=== PATIENT | female | born 1980 | race Caucasian/White ===

== ENCOUNTER 2017-06-10 08:48 | Inpatient (IN) | payer OTHER ==
[2017-06-10 09:54] LABS: BASO % 0.2 % (0-2.0); EOS % 0.2 % (0-4.5); HEMATOCRIT 36.9 % (32.4-45.2); HEMOGLOBIN 12.3 GM/dL (10.7-15.3); LYMPH % 6.2 % (8-40); MCH 30.7 pg (25.7-33.7); MCHC 33.2 g/dl (32.0-36.0); MEAN CELL VOLUME 92.4 fl (80-96); MEAN PLT VOLUME 9.6 fl (7.5-11.1); MONO % 3.9 % (3.8-10.2); NEUT % 89.5 % (42.8-82.8); PLATELET COUNT 183 K/MM3 (134-434); RBC 3.99 M/mm3 (3.60-5.2); RDW 14.2 % (11.6-15.6)
[2017-06-10 09:58] LABS: WHITE BLOOD COUNT 7.6 K/mm3 (4.0-10.0)
[2017-06-10] MEDS ORDERED: DEXTROSE 5%-LACTATED RINGERS 1,000 ML IV SCH (10:00)
[2017-06-10] MEDS ORDERED: METHADONE HCL 10 MG TABLET PO SCH (10:00)
[2017-06-10] MEDS: ELECTROLYTE-148 SOLN 1,000 ML IV SCH (10:00)
[2017-06-10] MEDS ORDERED: FENTANYL/BUPIVACAINE/NS/PF - PCEA - 50 ML DISP.SYRIN EP ONE ×2 (10:05→13:15)
[2017-06-10] MEDS ORDERED: METHADONE HCL 10 MG TABLET ONE (10:05)
[2017-06-10 10:12] LABS: INR 0.88 (0.82-1.09); PROTHROMBIN TIME (PATIENT) 9.9 SEC (9.7-13.0)
[2017-06-10 10:15] LABS: ACTIVATED PTT 27.7 SECONDS (26.9-34.4)
[2017-06-10 10:20] LABS: ANION GAP 7 (8-16); BLOOD UREA NITROGEN 18 mg/dL (7-18); CALCIUM 8.7 mg/dL (8.5-10.1); CHLORIDE 104 mmol/L (98-107); CO2 25 mmol/L (21-32); CREATININE 0.9 mg/dL (0.55-1.02); GLUCOSE,RANDOM 99 mg/dL (74-106); SODIUM 136 mmol/L (136-145)
[2017-06-10] MEDS ORDERED: BUPIVACAINE HCL/PF 0.25% (2.5MG/ML) 10 ML VIAL ONE (10:23)
[2017-06-10] MEDS ORDERED: LIDO 2%/EPI 1:200000 PRESRVFRE (20 ML SDVIAL) ONE (10:23)
[2017-06-10 10:50] LABS: URINE APPEARANCE SLCLOUDY; URINE BILIRUBIN NEGATIVE (<2.0 mg/dL); URINE BLOOD 2+ (NEGATIVE); URINE COLOR YELLOW; URINE GLUCOSE (UA) NEGATIVE (NEGATIVE); URINE KETONE NEGATIVE (NEGATIVE); URINE NITRITE NEGATIVE (NEGATIVE); URINE PROTEIN NEGATIVE (NEGATIVE)
[2017-06-10 10:55] LABS: URINE LEUK ESTERASE 2+ (NEGATIVE)
[2017-06-10 10:56] LABS: EPI CELLS RARE /HPF (FEW); URINE MUCUS RARE
[2017-06-10] MEDS ORDERED: NALOXONE HCL 0.4 MG/ML VIAL IVPUSH PRN (11:04)
[2017-06-10] MEDS ORDERED: AMPICILLIN SODIUM 2 GM VIAL ONE (11:15)
[2017-06-10] MEDS ORDERED: FENTANYL/BUPIVACAINE/NS/PF - PCEA - 50 ML DISP.SYRIN EP SCH (11:15)
[2017-06-10] MEDS ORDERED: AMPICILLIN - 2 GM in SODIUM CHLORIDE 100 ML IVPB ONE (11:15)
[2017-06-10 11:20] LABS: URINE AMPHETAMINES NEGATIVE ng/ml (CUTOFF=500); URINE BARBITURATES NEGATIVE ng/ml (CUTOFF=200); URINE BENZODIAZEPINES NEGATIVE ng/ml (CUTOFF=200)
[2017-06-10 11:21] LABS: PHENCYCLIDINE,URINE NEGATIVE ng/ml (CUTOFF=25)
[2017-06-10 11:41] VITALS: BMI 27.4
[2017-06-10 11:48] LABS: COCAINE, UR POSITIVE ng/ml (CUTOFF=300); METHADONE, UR POSITIVE ng/ml (CUTOFF=300); OPIATES, URI POSITIVE ng/ml (CUTOFF=300)
[2017-06-10] MEDS ORDERED: OXYTOCIN 20 UNITS in 0.9% NS 20 UNIT/1,000 ML INFUS.BAG IV ONE (13:22)
[2017-06-10] MEDS ORDERED: TUBERCULIN PPD 5 TU/0.1ML SYRINGE (IN PATIENT USE ONLY) ID ONE (14:00)
--- NOTE | 2017-06-10 14:23 | HP ---
Past Medical History - Admission Chief Complaint: Labor pain History of Present Illness: 37 yo , LMP 09/15/16, EDC 06/22/17, @ 38 weeks gestation, admitted for labor pain. She has h/o borderline personality disorder, Depression, and substance abuse; she's on Methadone. History Source: Patient Limitations to Obtaining History: No Limitations - Past Medical History ...: 3 ...Para: 0 ...Term: 0 ...: 0 ...Spon : 0 ...Induced : 2 ...Multiple Gestation: 0 ...LMP: 09/15/16 ... Weeks Gestation by Dates: 38.2 ...EDC by Dates: 06/22/17 ...EDC by Sono: 06/22/17 - Past Surgical History Past Surgical History: Yes: None Hx Myomectomy: No Hx Transabdominal Cerclage: No - Smoking History Smoking history: Current every day smoker Have you smoked in the past 12 months: Yes Aproximately how many cigarettes per day: 10 - Alcohol/Substance Use Hx Alcohol Use: No Home Medications - Allergies Allergies/Adverse Reactions: Allergies Allergy/AdvReac Type Severity Reaction Status Date / Time No Known Allergies Allergy Verified 06/10/17 09:23 - Home Medications Home Medications: Ambulatory Orders Methadone (Detox) [Dolophine -] 140 mg PO DAILY 05/14/17 Vit No.130/Iron/Folic [ Vitamins] 1 each PO DAILY 05/14/17 Family Disease History - Family Disease History Family History: Unremarkable Review of Systems - Review of Systems Constitutional: reports: No Symptoms Eyes: reports: No Symptoms HENT: reports: No Symptoms Neck: reports: No Symptoms Cardiovascular: reports: No Symptoms Respiratory: reports: No Symptoms Gastrointestinal: reports: No Symptoms Genitourinary: reports: Pain Neurological: reports: No Symptoms Endocrine: reports: No Symptoms Psychiatric: reports: No Symptoms Pain Intensity: 8 Physical Exam - Maternity Vital Signs: Vital Signs Temperature 97.7 F 06/10/17 13:57 Pulse Rate 54 L 06/10/17 13:15 Respiratory Rate 18 06/10/17 13:15 Blood Pressure 109/79 06/10/17 13:15 O2 Sat by Pulse Oximetry (%) 98 06/10/17 13:15 Constitutional: Yes: Well Nourished Eyes: Yes: Conjunctiva Clear HENT: Yes: Atraumatic Neck: Yes: Supple Cardiovascular: Yes: Regular Rate and Rhythm Lungs: Clear to auscultation - Abdominal Exam/OB Number of Fetuses: Single Presentation: Vertex - Vaginal Exam/OB Station: -1 - Physical Exam ...Motor Strength: WNL Psychiatric: Yes: Alert, Oriented - Labs Lab Results: CBC, BMP 06/10/17 09:30 06/10/17 09:30 Problem List - Problems (1) Pain during labor Code(s): O99.89 - OTH DISEASES AND CONDITIONS COMPL PREG/CHLDBRTH; R52 - PAIN, UNSPECIFIED (2) Status post vaginal delivery Code(s): BSI7411 - Assessment/Plan Active labor Admit to L&D Analgesia as needed Methadone Anticipate
[2017-06-10] MEDS ORDERED: BENZOCAINE 28 GM HEMORRHOIDAL OINTMENT TP PRN (14:26)
[2017-06-10] MEDS ORDERED: ACETAMINOPHEN 325 MG TABLET (FP) PO PRN (14:26)
[2017-06-10] MEDS ORDERED: WITCH HAZEL 50% (TUCKS) 40 PAD/JAR PAD TP PRN (14:26)
[2017-06-10] MEDS ORDERED: BENZOCAINE 20% 57 GM BOTTLE TP PRN (14:26)
[2017-06-10] MEDS ORDERED: METHYLERGONOVINE MALEATE 0.2 MG/1 ML AMP IM PRN (14:26)
[2017-06-10] MEDS ORDERED: BISACODYL 10 MG SUPP.RECT RC PRN (14:26)
[2017-06-10] MEDS ORDERED: IBUPROFEN 600 MG TABLET (FP) PO PRN (14:26)
[2017-06-10] MEDS ORDERED: OXYTOCIN 20 UNITS in 0.9% NS 20 UNIT/1,000 ML INFUS.BAG IV SCH (14:30)
[2017-06-10 14:54] LABS: ARTERIAL BLD GAS O2 SATURATION 22.3 % (90-98.9); ARTERIAL BLOOD GAS BASE EXCESS -5.3 meq/l (-2-2); ARTERIAL BLOOD GAS PCO2 67.5 mmHg (35-45); ARTERIAL BLOOD GAS PO2 17.1 mmHg (80-100); ARTERIAL BLOOD GAS pH 7.19 (7.35-7.45)
[2017-06-10 14:55] LABS: VENOUS PC02 54.3 mmHg (38-52); VENOUS PH 7.24 (7.32-7.42); VENOUS PO2 22.6 mmHg (28-48)
[2017-06-10] MEDS: AMPICILLIN - 1 GM in SODIUM CHLORIDE 100 ML IVPB SCH (16:05)
[2017-06-10] MEDS: FERROUS SO4 325 MG TABLET (FP) PO SCH (17:27)
[2017-06-11 07:36] LABS: BASO % 0.5 % (0-2.0); EOS % 0.7 % (0-4.5); HEMATOCRIT 30.1 % (32.4-45.2); HEMOGLOBIN 10.3 GM/dL (10.7-15.3); LYMPH % 13.3 % (8-40); MCH 31.5 pg (25.7-33.7); MCHC 34.1 g/dl (32.0-36.0); MEAN CELL VOLUME 92.3 fl (80-96); MEAN PLT VOLUME 9.8 fl (7.5-11.1); MONO % 10.1 % (3.8-10.2); NEUT % 75.4 % (42.8-82.8); PLATELET COUNT 168 K/MM3 (134-434); RBC 3.26 M/mm3 (3.60-5.2); RDW 14.3 % (11.6-15.6); WHITE BLOOD COUNT 5.9 K/mm3 (4.0-10.0)
[2017-06-11] MEDS: AMPICILLIN - 1 GM in SODIUM CHLORIDE 100 ML IVPB SCH (08:32)
[2017-06-11] MEDS: FERROUS SO4 325 MG TABLET (FP) PO SCH ×3 (09:00→16:52)
[2017-06-11] MEDS ORDERED: METHADONE HCL 40 MG DISPERSABLE TABLET ONE (09:22)
[2017-06-11] MEDS ORDERED: METHADONE HCL 10 MG TABLET ONE (09:23)
[2017-06-11] MEDS: PRENATAL VITAMINS W/ FOLIC ACID TABLET (FP) PO SCH (09:30)
[2017-06-11] MEDS: METHADONE 120 MG, METHADONE 20 MG PO SCH (09:34)
--- NOTE | 2017-06-11 09:44 | PN ---
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 Nose / Oropharynx suctioned @ perineum. Cord clamped and cut. Placenta expelled spontaneously intact.
--- NOTE | 2017-06-11 13:48 | CON.PSY ---
Psychiatry Consult Chief Complaint: 37 year old female s/p first delivery. History of Substance abuse and ? Bipolar disorder. She had been on Seroquel, Neuronyin, visatril and Zoloft. Sees at the [facility]. Symptoms: reports: Anxiety - Previous Psychiatric Treatment Inpatient: One prior admission - Previous Substance Abuse Treatment Outpatient: Less than 6 mos ago - Reason for Previous Treatment Reason for Previous Treatment: Major Depression, Drug Abuse, Heroin or Other Narcotics - Current Medications Current Medications: Active Medications Acetaminophen (Tylenol -) 650 mg PO Q3H PRN PRN Reason: PAIN Benzocaine (Americaine 20% [place] -) 1 spray TP PRN PRN PRN Reason: PAIN Benzocaine (Americaine Ointment -) 1 applic TP PRN PRN PRN Reason: PAIN Bisacodyl (Dulcolax Suppository -) 10 mg RC PRN PRN PRN Reason: CONSTIPATION Diphtheria/Tetanus/Acell Pertussis (Boostrix -) 0.5 ml IM .ONCE ONE Stop: 06/12/17 10:01 Fentanyl/Bupivacaine/Sodium Chlor (Bupivicaine 0.125%/Fentanyl 2mcg/Ml Pcea) 50 ml EP ASDIR ROSAURA PRN Reason: Protocol Last Admin: 06/10/17 10:45 Dose: 50 ml Ferrous Sulfate (Feosol -) 325 mg PO TIDCM [facility] Last Admin: 06/11/17 09:00 Dose: 325 mg Parenteral Electrolytes (Plasma-Lyte 148 -) 1,000 mls @ 125 mls/hr IV ASDIR [facility] Last Admin: 06/10/17 10:00 Dose: 125 mls/hr Oxytocin/Sodium Chloride (Normal Saline+20 Units Oxytocin -) 20 unit in 1,000 mls @ 125 mls/hr IV ASDIR [facility] Last Admin: 06/10/17 14:15 Dose: 125 mls/hr Ibuprofen (Motrin -) 600 mg PO Q4H PRN PRN Reason: PAIN Methadone HCl 120 mg/ (Methadone HCl 20 mg) 140 mg PO DAILY@0600 [facility] Last Admin: 06/11/17 09:34 Dose: 140 mg Methylergonovine Maleate (Methergine Injection -) 0.2 mg IM Q4H PRN PRN Reason: EXCESSIVE BLEEDING (L&D) Naloxone HCl (Narcan -) 0.4 mg IVPUSH PRN PRN PRN Reason: Sedation Pneumococcal 13-Valent Conj Vacc (Prevnar 13 Syringe -) 0.5 ml IM .ONCE ONE Stop: 06/12/17 10:01 Multivit/Folic Acid/Iron ( Vitamins (Sjr) -) 1 tab PO DAILY ROSAURA Last Admin: 06/11/17 09:30 Dose: 1 tab Senna/Docusate Sodium (Pericolace -) 2 tablet PO HS PRN PRN Reason: CONSTIPATION Witch Ritu/Glycerin (Tucks Pads -) 1 pad TP PRN PRN PRN Reason: PAIN - Allergies Allergies: Allergies Allergy/AdvReac Type Severity Reaction Status Date / Time No Known Allergies Allergy Verified 06/10/17 15:50 - Current Living Status Usual Living Arrangement: With Significant Other - Current Mental Status Evaluation Appearance: Disheveled Attitude: Guarded - Affect Affect: Constrictive Appropriateness: Appropriate to Content - Mood Mood: Anxious - Speech/Language Expressive: Coherent - Psychomotor Activity Psychomotor Activity: Hyperactive - Thought Process Thought Process: Intact - Thought Content Hallucinations: Absent Delusions: Absent - Self Perception Self Perception: No Impairment - Cognition Attention: Alert Orientation: Time Memory, Immediate Recall: Intact Memory, Short Term: 3/3 Memory, Remote with Promptin/3 - Concentration Serial Sevens Intact: No Simple Calculations Intact: No - Abstraction Proverb Interpretation: Intact Judgement: Intact - Insight Insight: Intact - Impulse Control Impulse Control: Minimally Impaired - Suicidal Ideation Suicidal Ideation: No - Homicidal Ideation Homicidal Ideation: No Assessment/Plan 1) Start Seroquel; 100 mg po bid. 2) Psych follow up at [facility] [place] [facility] with DR. Bhardwaj. 3) Discharge when medically stable.
[2017-06-11] MEDS: QUEtiapine FUMARATE 100 MG TABLET (FP) PO SCH (21:16)
[2017-06-11] MEDS ORDERED: SENNOSIDES/DOCUSATE COMBO (SENNA PLUS) TABLET (UD) PO PRN (22:00)
--- NOTE | 2017-06-11 23:53 | PN ---
Post Progress Note - Subjective Subjective: 37 yo Para 1 status post normal vaginal delivery, seen and evaluated. Doing well. Post Day: 1 Type of Delivery: Vital Signs: Vital Signs Temperature 98.2 F 06/11/17 22:00 Pulse Rate 58 L 06/11/17 22:00 Respiratory Rate 18 06/11/17 22:00 Blood Pressure 120/60 06/11/17 22:00 O2 Sat by Pulse Oximetry (%) 100 06/10/17 14:00 Breast Exam: Yes: Soft Uterus: Yes: Fundus Firm Abdomen/GI: Yes: Abdomen soft Lochia: Yes: Rubra Lochia, amount: Moderate Extremities: Yes: Calves non-tender Activity: Ambulating - Labs Labs: CBC WBC 5.9 K/mm3 (4.0-10.0) 06/11/17 06:46 RBC 3.26 M/mm3 (3.60-5.2) L 06/11/17 06:46 Hgb 10.3 GM/dL (10.7-15.3) L D 06/11/17 06:46 Hct 30.1 % (32.4-45.2) L D 06/11/17 06:46 MCV 92.3 fl (80-96) 06/11/17 06:46 MCH 31.5 pg (25.7-33.7) 06/11/17 06:46 MCHC 34.1 g/dl (32.0-36.0) 06/11/17 06:46 RDW 14.3 % (11.6-15.6) 06/11/17 06:46 Plt Count 168 K/MM3 (134-434) 06/11/17 06:46 MPV 9.8 fl (7.5-11.1) 06/11/17 06:46 Neutrophils % 75.4 % (42.8-82.8) 06/11/17 06:46 Lymphocytes % 13.3 % (8-40) D 06/11/17 06:46 Monocytes % 10.1 % (3.8-10.2) D 06/11/17 06:46 Eosinophils % 0.7 % (0-4.5) D 06/11/17 06:46 Basophils % 0.5 % (0-2.0) 06/11/17 06:46 Problem List - Problems (1) Pain during labor Code(s): O99.89 - OTH DISEASES AND CONDITIONS COMPL PREG/CHLDBRTH; R52 - PAIN, UNSPECIFIED (2) Status post vaginal delivery Code(s): ELA1964 - Assessment/Plan Status post spontaneous vaginal delivery. Stable Continue routine care
[2017-06-12] MEDS ORDERED: METHADONE HCL 40 MG DISPERSABLE TABLET ONE (06:02)
[2017-06-12] MEDS ORDERED: METHADONE HCL 10 MG TABLET ONE (06:03)
[2017-06-12] MEDS: METHADONE 120 MG, METHADONE 20 MG PO SCH (06:07)
[2017-06-12] MEDS: FERROUS SO4 325 MG TABLET (FP) PO SCH ×2 (08:00→11:47)
[2017-06-12] MEDS: PRENATAL VITAMINS W/ FOLIC ACID TABLET (FP) PO SCH (09:47)
[2017-06-12] MEDS: QUEtiapine FUMARATE 100 MG TABLET (FP) PO SCH (09:49)
[2017-06-12] MEDS ORDERED: PNEUMOC 13-VAL CONJ-DIP CRM/PF 0.5 ML DISP.SYRIN IM ONE (10:00)
[2017-06-12] MEDS ORDERED: DIPHTH,PERTUSS(ACELL),TET 0.5 ML DISP.SYRIN IM ONE (10:00)
[2017-06-12] MEDS ORDERED: PNEUMOCOCCAL 23 VACCINE 0.5 ML VIAL IM ONE (10:00)
[2017-06-12 11:54] VITALS: BP 120/78; PULSE 68; TEMP 98.1
[2017-06-12] MEDS: ELECTROLYTE-148 SOLN 1,000 ML IV SCH (15:07)
--- NOTE | 2017-06-12 16:03 | DS ---
Physical Exam-[employer] Vital Signs: Vital Signs Temperature 98.1 F 06/12/17 10:00 Pulse Rate 68 06/12/17 10:00 Respiratory Rate 18 06/12/17 10:00 Blood Pressure 120/78 06/12/17 10:00 O2 Sat by Pulse Oximetry (%) 100 06/10/17 14:00 Constitutional: Yes: Poor Hygeine HENT: Yes: Atraumatic Neck: Yes: Supple, Trachea Midline Cardiovascular: Yes: Regular Rate and Rhythm Respiratory: Yes: Regular, CTA Bilaterally Gastrointestinal: Yes: Normal Bowel Sounds External Genitalia: Yes: Normal Vaginal Exam: Yes: Normal Cervix: Yes: Normal Uterus: Yes: Firm ....Post : Yes: Uterus firm, Slight lochia rubra Breast(s): Yes: WNL Neurological: Yes: Alert, Oriented ...Motor Strength: WNL Psychiatric: Yes: Alert, Oriented Labs: CBC, BMP 06/11/17 06:46 06/10/17 09:30 Delivery - Delivery Vaginal Delivery: Spontaneous Type of Anesthesia: Epidural Episiotomy/Laceration: None EBL (cc): 300 Delivery, Single - Stages of Labor Date 1st Stage Initiatied: 06/10/17 Time 1st Stage Initiated: 06:45 Date 2nd Stage Initiated: 06/10/17 Time 2nd Stage Initiated: 13:30 Date of Delivery: 06/10/17 Time of Delivery: 14:11 Time Placenta Delivered: 14:15 - 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 She received methadone in house. She was found to have MRSA; after consulting infectious disease specialist, she was discharged home with Bactroben and antibacterial soap. Condition: Good - Instructions Diet, Activity, Other Instructions: regular diet, follow up [facility] care 4 weeks, if fever, heavy vaginal bleeding call MD. follow up [facility] 4 weeks Disposition: HOME - Home Medications Comprehensive Discharge Medication List: Ambulatory Orders Methadone (Detox) [Dolophine -] 140 mg PO DAILY 05/14/17 Vit No.130/Iron/Folic [ Vitamins] 1 each PO DAILY 05/14/17 Quetiapine Fumarate [Seroquel -] mg PO HS 06/10/17 Sertraline HCl [Zoloft] mg PO 06/10/17 hydrOXYzine PAMOATE [Vistaril -] mg PO TID 06/10/17
== END 2017-06-12 17:00 | disposition home or self-care (01) | DRG 560 ==
LOC: JLDR 08:48 → J3W 16:15
PROVIDERS: ADMIT Obstetrics & Gynecology; ATTEND Obstetrics & Gynecology
PROC: 10E0XZZ Delivery of Products of Conception, External Approach (ICD-10-PCS; principal; 2017-06-11)
DX: O99.323 Drug use complicating pregnancy, third trimester (principal); F11.20 Opioid dependence, uncomplicated; O99.343 Other mental disorders complicating pregnancy, third trimester; F32.3 Major depressive disorder, single episode, severe with psychotic features; O26.893 Other specified pregnancy related conditions, third trimester; F60.3 Borderline personality disorder; O99.334 Smoking (tobacco) complicating childbirth; F17.210 Nicotine dependence, cigarettes, uncomplicated; Z3A.38 38 weeks gestation of pregnancy; Z37.0 Single live birth
CPT/HCPCS: 36415; 36600; 59409; 80048; 80307; 81003; 81015; 82803; 85025; 85461; 85610; 85730; 86593; 86850; 86900; 86901; 86999; 87081; 90715; 90732; G0009

== ENCOUNTER 2018-04-16 19:57 | Inpatient (IN) | payer OTHER ==
--- NOTE | 2018-04-16 20:21 | PDOC ---
Rapid Medical Evaluation Time Seen by Provider: 04/16/18 20:16 Medical Evaluation: Allergies Allergy/AdvReac Type Severity Reaction Status Date / Time No Known Allergies Allergy Verified 06/10/17 15:50 04/16/18 20:16 I have performed a brief in-person evaluation of this patient. The patient presents with a chief complaint of: Being treated for endocarditis, AMA at [facility] with R hip pain. Pertinent physical exam findings: No gross deficits, weight bears, I have ordered the following: CBC, CMP, U preg Tylenol The patient will proceed to the ED for further evaluation. 04/16/18 20:20 04/16/18 20:21 Discharge Disposition - Diagnosis Right hip pain - Referrals Referrals: Ana Manrique NP [Primary Care Provider] - - Patient Instructions - Post Discharge Activity
[2018-04-16] MEDS ORDERED: ACETAMINOPHEN 500 MG TABLET (FP) PO ONE (20:22)
[2018-04-16] MEDS ORDERED: ACETAMINOPHEN 500 MG TABLET (FP) ONE (20:48)
--- NOTE | 2018-04-16 21:11 | PDOC ---
Attending Attestation - HPI HPI: 04/16/18 22:30 The patient is a 37 year old female, with a significant past medical history of opioid dependence, Diaz disease, HTN, HCV, asthma, recent diagnosis of endocarditis, who presents to the emergency department with, 2 weeks of pleuritic chest pain with associated fevers, chills, and shortness of breath. Patient was recently treated at [facility] for endocarditis at which time she signed out AMA (this morning, unknown antibiotic). She denies recent fevers, chills, headache or dizziness. She denies recent nausea, vomit, diarrhea or constipation. She denies recent dysuria, frequency, urgency or hematuria. Allergies: NKDA <Russell Mi - Last Filed: 04/16/18 22:30> - Resident Resident Name: Deon Carbone - ED Attending Attestation I have performed the following: I have examined & evaluated the patient, The case was reviewed & discussed with the resident, I agree w/resident's findings & plan, Exceptions are as noted - Physicial Exam PE: 04/16/18 23:12 GENERAL: The patient is in no acute distress. HEAD: Normal EYES: PERRLA, EOMI, sclera anicteric, conjunctiva clear. ENT: Ears normal, nares patent, oropharynx clear without exudates. Moist mucous membranes. NECK: Normal range of motion, supple LUNGS: Breath sounds equal, clear to auscultation bilaterally. No wheezes, and no crackles. HEART:Regular rate and rhythm, normal S1 and S2 without murmur, rub or gallop. ABDOMEN: Soft, nontender, normoactive bowel sounds. EXTREMITIES: Normal range of motion, no edema. No clubbing or cyanosis. No erythema, or tenderness. NEUROLOGICAL: Cranial nerves II through XII grossly intact. Normal speech. No focal neurological deficits. SKIN: Warm, Dry, normal turgor, no rashes or lesions noted. - Medical Decision Making Pt has a known history of endocarditis Presenting with fevers pt eloped from OSH 04/16/18 23:12 Laboratory Tests 04/16/18 04/16/18 04/16/18 20:55 20:55 20:55 WBC 8.6 Hgb 9.7 L Hct 28.6 L D Plt Count 306 Sodium 133 L Potassium 4.8 Chloride 99 Carbon Dioxide 28 Anion Gap 6 L BUN 21 H Creatinine 1.2 Random Glucose 83 Urine HCG, Qual Negative Micro requested from OSH Will give abx based on this Admit to hospitalist service Last dose of abx this morning Clinical impression: endocarditis, initial presentation <Valentine Cortes - Last Filed: 04/21/18 10:14> Attestations - Attestations 04/16/18 22:30 Documentation prepared by Russell Mi, acting as medical device sales consultant for Valentine Cortes MD. <Russell Mi - Last Filed: 04/16/18 22:30>
--- NOTE | 2018-04-16 21:16 | PDOC ---
History of Present Illness - General Chief Complaint: Chest Pain Stated Complaint: INFECTION Time Seen by Provider: 04/16/18 20:16 - History of Present Illness Initial Comments: 04/16/18 21:10 37 yo F with h/o opioid dependence, Diaz disease, HTN, HCV, asthma, recent diagnosis of endocarditis on antibiotics who p/w chest pain. Patient reports 2 weeks of pleuritic, inhalational, non-exertional chest pain, fevers, and chills , and SOB. +2 weeks of slightly productive cough. Recently treated at [place]. Reports last IV Heroin 6-7 days ago. Patient states that she was recently admitted to [facility] for endocarditis, but left AMA this morning due to dissatisfaction with care she was receiving from staff. Patient does not recall antibiotic regimen that she was on. Patient denies WOODS, vision change, palpitations, wheezing, orthopena, PND, leg swelling/pain, N/V, F,C, urinary complaints, hematuria, BPR, abdominal pain, diarrhea, constipation, lightheadedness, weakness, sensory changes. PMHx: as noted above, no h/o cardiac valve replacement, structural heart disease. ROS: as noted SHx: tobacco use daily 1-2 ppd for 20 + years. Denies IVDA, Etoh. Allergies: NKDA Past History - Past Medical History Allergies/Adverse Reactions: Allergies Allergy/AdvReac Type Severity Reaction Status Date / Time No Known Allergies Allergy Verified 04/16/18 20:23 Home Medications: Ambulatory Orders Diphenhydramine [Benadryl] 25 mg IV QID 04/16/18 Ibuprofen [Motrin -] 600 mg PO QID 04/16/18 Methadone (Detox) [Dolophine -] 20 mg PO DAILY 04/16/18 Anemia: Yes Asthma: Yes (LAST ATTACK 1 YEAR AGO) Cancer: No Cardiac Disorders: No CVA: No COPD: No CHF: No Dementia: No Diabetes: No GI Disorders: No Disorders: No HTN: No Hypercholesterolemia: No Liver Disease: Yes (Hep C, tx'd w/ epclusa x 12 wks; svr) Seizures: No Thyroid Disease: No - Surgical History Abdominal Surgery: No Appendectomy: No Cardiac Surgery: No Cholecystectomy: No Lung Surgery: No Neurologic Surgery: Yes (TRANS-SPHENOIDAL HYPOPHYSECTOMY AGE 15) Orthopedic Surgery: No - Suicide/Smoking/Psychosocial Hx Smoking Status: Yes Smoking History: Current every day smoker Years of Tobacco Use: 14 Have you smoked in the past 12 months: Yes Number of Cigarettes Smoked Daily: 5 Information on smoking cessation initiated: No Hx Alcohol Use: No Drug/Substance Use Hx: Yes Hx Substance Use Treatment: Yes (METHADONE) Review of Systems - Review of Systems Comments:: 04/16/18 21:16 GENERAL/CONSTITUTIONAL: + fever and chills. No weakness. HEAD, EYES, EARS, NOSE AND THROAT: No change in vision. No ear pain or discharge. No sore throat. CARDIOVASCULAR: + chest pain and shortness of breath. RESPIRATORY: No cough, wheezing, or hemoptysis. GASTROINTESTINAL: No nausea, vomiting, diarrhea or constipation. GENITOURINARY: No dysuria, frequency, or change in urination. MUSCULOSKELETAL: + R hip pain. No joint or muscle swelling or pain. No neck or back pain. SKIN: No rash NEUROLOGIC: No headache, vertigo, loss of consciousness, or change in strength/ sensation. ENDOCRINE: No increased thirst. No abnormal weight change HEMATOLOGIC/LYMPHATIC: No anemia, easy bleeding, or history of blood clots. ALLERGIC/IMMUNOLOGIC: No hives or skin allergy. *Physical Exam - Vital Signs Last Vital Signs Temp Pulse Resp BP Pulse Ox 102.2 F H 128 H 22 H 106/64 100 04/16/18 20:20 04/16/18 20:20 04/16/18 20:20 04/16/18 20:20 04/16/18 20:20 - Physical Exam Comments: 04/16/18 21:16 GENERAL: Awake, alert, and fully oriented, in no acute distress HEAD: No signs of trauma, normocephalic, atraumatic EYES: PERRLA, EOMI, sclera anicteric, conjunctiva clear ENT: Auricles normal inspection, hearing grossly normal, nares patent, oropharynx clear without exudates. Moist mucosa NECK: Normal ROM, supple, no lymphadenopathy, JVD, or masses LUNGS: No distress, speaks full sentences, clear to auscultation bilaterally HEART: + systolic murmur RU and AGUSTIN sternal border. Regular rate and rhythm, normal S1 and S2, rubs or gallops, peripheral pulses normal and equal bilaterally. ABDOMEN: Soft, nontender, normoactive bowel sounds. No guarding, no rebound. No masses EXTREMITIES :Multiple track teague BL UE. Normal range of motion, no edema. No clubbing or cyanosis. NEUROLOGICAL: Cranial nerves II through XII grossly intact. Normal speech, normal gait, no focal sensorimotor deficits SKIN: Warm, Dry, normal turgor, no rashes or lesions noted Moderate Sedation - Procedure Monitoring Vital Signs: Procedure Monitoring Vital Signs Temperature 102.2 F H 04/16/18 20:20 Pulse Rate 128 H 04/16/18 20:20 Respiratory Rate 22 H 04/16/18 20:20 Blood Pressure 106/64 04/16/18 20:20 O2 Sat by Pulse Oximetry (%) 100 04/16/18 20:20 ED Treatment Course - LABORATORY CBC & Chemistry Diagram: 04/16/18 20:55 04/16/18 20:55 - Medications Given in the ED: ED Medications Discontinued Medications Generic Name Dose Route Start Last Admin Trade Name Freq PRN Reason Stop Dose Admin Acetaminophen 1,000 mg 04/16/18 20:22 04/16/18 20:49 Tylenol - PO 04/16/18 20:23 1,000 mg ONCE ONE Administration Medical Decision Making - Medical Decision Making 04/16/18 21:13 37 yo F with h/o opioid dependence, [place] disease, HTN, IVDA, HCV, asthma, recent diagnosis of endocarditis on antibiotics who p/w chest pain, SOB. Temp 102.2, HR 128, RR 22, O2 100, B P106/64. Patient with 3/4 SIRS criteria, and suspected infection. Possible endocarditis. No evidence of vascular ( [place] lesions, conjuctival hemorrhages) or immunologic ( Bradley spots, Osler nodes) phenomenon. 2/5 Minor criteria per REEDER criteria ( fever, h/o recent IVDA). Sepsis protocol initiated. No evidence of resp failure, pulmonary edema, or cardiogenic shock, CHF. Will obtain blood cultures, provide antipyretic control, and analgesia. Ed Course: Sepsis Set, Blood Cx. x 3, 3 blood cultures have been sent to lab R AC, LAC, R HAND ESR Tylenol, NS 30 cc/kg 04/16/18 22:01 Contacted [facility] , Patient on 6 floor. Per nurse on 6th floor patient signed out AMA, and unable to provide information. Awaiting call back from senior resident. Patient signed release of medical information to obtain [facility] records. 04/16/18 22:33 WBC: 8.6 CMP: Unremarkable Urine preg: Neg contacted medical records . Awaiting call back. 04/17/18 00:03 Will admit to tele, for antibiotics and echo 04/17/18 00:[address] Ponce. Admitted to tele ID consult placed *DC/Admit/Observation/Transfer Diagnosis at time of Disposition: Endocarditis Qualifiers: Endocarditis type: unspecified Chronicity: unspecified Qualified Code(s): I38 - Endocarditis, valve unspecified Sepsis Qualifiers: Sepsis type: sepsis due to unspecified organism Qualified Code(s): A41.9 - Sepsis, unspecified organism - Discharge Dispostion Condition at time of disposition: Stable Decision to Admit order: Yes - Referrals Referrals: Ana Manrique ORGAN BUILDER [Primary Care Provider] - - Patient Instructions - Post Discharge Activity
[2018-04-16 21:38] LABS: BASO % 0.2 % (0-2.0); EOS % 0.4 % (0-4.5); HEMATOCRIT 28.6 % (32.4-45.2); HEMOGLOBIN 9.7 GM/dL (10.7-15.3); LYMPH % 7.8 % (8-40); MCHC 33.9 g/dl (32.0-36.0); MEAN CELL VOLUME 85.6 fl (80-96); MEAN PLT VOLUME 8.2 fl (7.5-11.1); MONO % 6.4 % (3.8-10.2); NEUT % 85.2 % (42.8-82.8); PLATELET COUNT 306 K/MM3 (134-434); RBC 3.35 M/mm3 (3.60-5.2); RDW 15.3 % (11.6-15.6); WHITE BLOOD COUNT 8.6 K/mm3 (4.0-10.0)
[2018-04-16 21:49] LABS: ALBUMIN 2.4 g/dl (3.4-5.0); ALK PHOS 111 U/L (45-117); ANION GAP 6 MMOL/L (8-16); BILIRUBIN,TOTAL 0.2 mg/dL (0.2-1); BLOOD UREA NITROGEN 21 mg/dL (7-18); CALCIUM 8.4 mg/dL (8.5-10.1); CHLORIDE 99 mmol/L (98-107); CO2 28 mmol/L (21-32); CREATININE 1.2 mg/dL (0.55-1.3); GLUCOSE,RANDOM 83 mg/dL (74-106); POTASSIUM 4.8 mmol/L (3.5-5.1); SGOT/AST 15 U/L (15-37); SGPT/ALT 19 U/L (13-61); SODIUM 133 mmol/L (136-145); TOT PROT 7.1 g/dl (6.4-8.2)
[2018-04-16] MEDS ORDERED: SODIUM CHLORIDE 1,633 ML IV ONE (22:03)
--- NOTE | 2018-04-16 23:58 | HP ---
CHIEF COMPLAINT: PCP: HISTORY OF PRESENT ILLNESS: 37 yo F with h/o opioid dependence, [place] disease, HTN, HCV, asthma, recent diagnosis of endocarditis on antibiotics who p/w chest pain. Patient reports 2 weeks of pleuritic, inhalational, non-exertional chest pain, fevers, and chills , and SOB. +2 weeks of slightly productive cough. Recently treated at [place]. Reports last IV Heroin 6-7 days ago. Patient states that she was recently admitted to [facility] for endocarditis, but left AMA this morning due to dissatisfaction with care she was receiving from staff. Patient does not recall antibiotic regimen that she was on. Patient denies WOODS, vision change, palpitations, wheezing, orthopena, PND, leg swelling/pain, N/V, F,C, urinary complaints, hematuria, BPR, abdominal pain, diarrhea, constipation, lightheadedness, weakness, sensory changes. pt was on methadone program and left the program for non compliance pt is currently using heroin and methadone illegal , last heroin injection 6 days ago pt had baby one year ago, pt LMP 2 weeks ago pt reports chronic right hip pain that worsen last 2 weeks. ER course was notable for: (1)bhch negative (2)blood cx ,then vanco and zosym , consult ID (3)cxr , echo Recent Travel:denies PAST MEDICAL HISTORY: as per HPI PAST SURGICAL HISTORY: Brain surgery Social History: Smokin-5 cig/day Alcohol:denies Drugs: Methadone , heroin , pots Family History:Mother HTN , Father heart disease Allergies No Known Allergies Allergy (Verified 04/16/18 20:23) HOME MEDICATIONS: Home Medications Medication Instructions Recorded Diphenhydramine [Benadryl] 25 mg IV QID 04/16/18 Ibuprofen [Motrin -] 600 mg PO QID 04/16/18 Methadone (Detox) [Dolophine -] 20 mg PO DAILY 04/16/18 REVIEW OF SYSTEMS CONSTITUTIONAL: Absent: fever, chills, diaphoresis, generalized weakness, malaise, loss of appetite, weight change HEENT: Absent: rhinorrhea, nasal congestion, throat pain, throat swelling, difficulty swallowing, mouth swelling, ear pain, eye pain, visual changes CARDIOVASCULAR: Absent: chest pain, syncope, palpitations, irregular heart rate, lightheadedness , peripheral edema RESPIRATORY: Absent: cough, shortness of breath, dyspnea with exertion, orthopnea, wheezing, stridor, hemoptysis GASTROINTESTINAL: Absent: abdominal pain, abdominal distension, nausea, vomiting, diarrhea, constipation, melena, hematochezia GENITOURINARY: Absent: dysuria, frequency, urgency, hesitancy, hematuria, flank pain, genital pain MUSCULOSKELETAL: Absent: myalgia, arthralgia, joint pain right hip, back pain, neck pain SKIN: Absent: rash, itching, pallor HEMATOLOGIC/IMMUNOLOGIC: Absent: easy bleeding, easy bruising, lymphadenopathy, frequent infections ENDOCRINE: Absent: unexplained weight gain, unexplained weight loss, heat intolerance, cold intolerance NEUROLOGIC: Absent: headache, focal weakness or paresthesias, dizziness, unsteady gait, seizure, mental status changes, bladder or bowel incontinence PSYCHIATRIC: Absent: anxiety, depression, suicidal or homicidal ideation, hallucinations. PHYSICAL EXAMINATION Vital Signs - 24 hr 04/16/18 20:20 Temperature 102.2 F H Pulse Rate 128 H Respiratory 22 H Rate Blood Pressure 106/64 O2 Sat by Pulse 100 Oximetry (%) GENERAL: lethargic , drowsy , AAOX3 , poor hygiene , HEAD:NC/AT EYES: Pupils equal, round and reactive to light, extraocular movements intact, sclera anicteric, conjunctiva clear. No lid lag. ENT: Dry MM NECK: supple without JVD, right neck erythema (she said small cut possible injection site ) LUNGS: Breath sounds equal, clear to auscultation bilaterally. No wheezes, and no crackles. No accessory muscle use. HEART: Regular rate and rhythm, normal S1 and S2, 2/6 holosystolic murmur LUSB, RUSB , ABDOMEN: Soft, nontender, not distended, normoactive bowel sounds,diffuse skin stria all over her body , no CVA tenderness UPPER EXTREMITIES: 2+ pulses, warm, well-perfused. No cyanosis. No clubbing. No peripheral edema. LOWER EXTREMITIES: 2+ pulses, warm, well-perfused. No calf tenderness. No peripheral edema. right hip tenderness NEUROLOGICAL: Cranial nerves II-XII intact.slurred speech , drowsy PSYCHIATRIC: lethargic , drowsy SKIN: Warm, dry, poor hygiene, diffuse skin stria Laboratory Results - last 24 hr 04/16/18 04/16/18 04/16/18 20:55 20:55 20:55 WBC 8.6 RBC 3.35 L Hgb 9.7 L Hct 28.6 L D MCV 85.6 MCH 29.0 MCHC 33.9 RDW 15.3 Plt Count 306 MPV 8.2 Absolute Neuts (auto) 7.3 Neutrophils % 85.2 H D Lymphocytes % 7.8 L D Monocytes % 6.4 Eosinophils % 0.4 D Basophils % 0.2 Nucleated RBC % 0 Sodium 133 L Potassium 4.8 Chloride 99 Carbon Dioxide 28 Anion Gap 6 L BUN 21 H Creatinine 1.2 Creat Clearance w eGFR 50.28 Random Glucose 83 Calcium 8.4 L Total Bilirubin 0.2 AST 15 ALT 19 Alkaline Phosphatase 111 Total Protein 7.1 Albumin 2.4 L Urine HCG, Qual Negative CBC, BMP 04/16/18 20:55 04/16/18 20:55 ASSESSMENT/PLAN: 37 year old female with pmhx of substance abuse (heroin ) and h/o endocarditis presented to ED today due to chest pain and right hip pain was found to be septic and admitted to tele for further evaluation. # Sepsis likely due to endocarditis vs another source of infection * IV fluids NS Bolus and maintenance * Lobo cx * Abx vanc /zosyn * consult ID * Echo in am * admit to tele * cardiac and blood pressure close monitor as pt can deteriorate to septic shock * tylenol for fever * cxr * ekg * ESR, CRP * records from [facility] in AM , called multiple times by ED resident # chest pain unlikely ACS but more from endocarditis * tele monitor * EKG * Trend trop #Hip pain acute on chronic worsen last couple weeks * R/O osteomylitis * HIP x ray , will do MRI if notice any abnormalities on X ray * tyhlenol for pain # Substance abuse * pt was on methadone 4 months ago and was taken off due non compliance * she is using heroin injection since then and last use 5 days ago * denies alcohol * UA and urine tox * consult detox * monitor for withdrawal # Anemia likely due to chronic disease * no active bleeding * iron studies , B12 , folic acid , tsh #H/O jaqui # FEN * NS Bolus and maintenance * monitor lytes * regular diet # Proph * lovenox 40 daily sq # Dispo * tele inpatient Visit type - Emergency Visit Emergency Visit: Yes ED Registration Date: 04/16/18 Care time: The patient presented to the Emergency Department on the above date and was hospitalized for further evaluation of their emergent condition. - New Patient This patient is new to me today: Yes Date on this admission: 04/16/18 - Critical Care Critical Care patient: No
--- NOTE | 2018-04-17 00:26 | PN ---
Teaching Attending Note Name of Resident: Cuco Ponce ATTENDING PHYSICIAN STATEMENT I saw and evaluated the patient. I reviewed the resident's note and discussed the case with the resident. I agree with the resident's findings and plan as documented. 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 Patient reports 2 weeks of pleuritic, inhalational, non-exertional chest pain, fevers, and chills, and SOB. Associated with slightly productive cough. Recently treated at [place]. Says right groin pain is chronic due to her DJD, but has gotten worse recently. Reports last IV Heroin 6-7 days ago. Was discharged from methadone 4 months ago, but since then has been getting methadone on the street. LMP was 1 week ago. Patient states that she was recently admitted to [facility] for endocarditis, but left AMA this morning due to dissatisfaction with the care she was receiving from staff. Patient does not recall antibiotic regimen that she was on. She denies headache, vision change, palpitations, wheezing, orthopena, PND, leg swelling/pain, nausea, vomiting, chills, fever, urinary complaints, hematuria, abdominal pain, diarrhea, constipation, lightheadedness or weakness. OBJECTIVE: Alert Vital Signs Period Temp Pulse Resp BP Sys/Han Pulse Ox Last 24 Hr 102.2 F 128 22 106/64 100 HEENT: No Jaundice, eye redness or discharge, PERRLA, EOMI. Normocephalic, atraumatic. External ears are normal and hearing is grossly intact. No nasal discharge. Neck: Supple, nontender. No palpable adenopathy or thyromegaly. No JVD Chest: Good effort. Clear to auscultation and percussion. Heart: Regular. No S3 or rub. 2/6 FIDENCIO. Abdomen: Not distended, soft, nontender and no HSM. No rebound or guarding. Normoactive bowel sounds. Ext: Peripheral pulses intact. No leg edema. Tender right groin and walking with a limp. Skin: Warm and dry. No petechiae, rash or ecchymosis. Neuro: Alert. Oriented x3. CN 2-12 grossly intact. Sensation grossly intact in all four extremities and DTR are symmetric. Home Medications Medication Instructions Recorded Diphenhydramine [Benadryl] 25 mg IV QID 04/16/18 Ibuprofen [Motrin -] 600 mg PO QID 04/16/18 Methadone (Detox) [Dolophine -] 20 mg PO DAILY 04/16/18 Abnormal Lab Results 04/16/18 04/16/18 20:55 20:55 RBC 3.35 L Hgb 9.7 L Hct 28.6 L D Neutrophils % 85.2 H D Lymphocytes % 7.8 L D Sodium 133 L Anion Gap 6 L BUN 21 H Calcium 8.4 L Albumin 2.4 L ASSESSMENT AND PLAN: 1. Chest pain - Etiology unclear, though may be related to endocarditis. CXR, urinalysis and EKG pending. Will admit to telemetry to rule out ACS and get ECHO. Repeat sepsis workup and strive to get records from [facility]. Get right hip MRI to rule out septic arthritis/osteomyelitis. Will continue IV vancomycin and zosyn, consult ID. 2. Hypoalbuminemia - Possibly due to combined effects of malnutrition and inflammation associated with comorbid chronic conditions. 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 3. Tobacco Use We will provide patient all the necessary assistance to facilitate smoking cessation and prescribe Nicotine patch. 4. Anemia - Likely multifactorial including acute/chronic inflammation. Will do basic anemia work up including serial stool guaiacs, reticulocyte count and iron studies. 5. Polysubstance abuse - Monitor closely for withdrawal. [employer] patient about abstaining from illicit drug use. Consult non destructive evaluation specialist and refer to detox upon discharge. 6. DVT prophylaxis - Lovenox 40 mg SQ q 24 hours. 7. Advance directives - Full code
[2018-04-17] MEDS ORDERED: PIPERACILLIN/TAZOB 4.5 GM 4.5 GM in DEXTROSE 5%-WATER 100 ML IVPB ONE (00:55)
[2018-04-17] MEDS ORDERED: SODIUM CHLORIDE 1,000 ML IV STA ×2 (01:34)
[2018-04-17] MEDS ORDERED: ACETAMINOPHEN 325 MG TABLET (FP) ONE (02:05)
[2018-04-17] MEDS: ACETAMINOPHEN 325 MG TABLET (FP) PO PRN ×2 (02:19→13:10)
[2018-04-17 02:55] LABS: URINE APPEARANCE SLCLOUDY; URINE BILIRUBIN NEGATIVE (<2.0 mg/dL); URINE COLOR YELLOW; URINE GLUCOSE (UA) NEGATIVE (NEGATIVE); URINE KETONE NEGATIVE (NEGATIVE); URINE LEUK ESTERASE 1+ (NEGATIVE); URINE NITRITE NEGATIVE (NEGATIVE); URINE PROTEIN NEGATIVE (NEGATIVE); URINE UROBILINOGEN NEGATIVE mg/dL (0.2-1.0)
[2018-04-17 03:08] LABS: EPI CELLS FEW /HPF (FEW)
[2018-04-17 03:42] LABS: PHENCYCLIDINE,URINE NEGATIVE ng/ml (CUTOFF=25); URINE AMPHETAMINES NEGATIVE ng/ml (CUTOFF=500); URINE BARBITURATES NEGATIVE ng/ml (CUTOFF=200); URINE BENZODIAZEPINES NEGATIVE ng/ml (CUTOFF=200)
[2018-04-17 03:50] LABS: COCAINE, UR POSITIVE ng/ml (CUTOFF=300); OPIATES, URI POSITIVE ng/ml (CUTOFF=300)
[2018-04-17 03:51] LABS: METHADONE, UR POSITIVE ng/ml (CUTOFF=300)
[2018-04-17] MEDS ORDERED: PIPERACILLIN/TAZOB 4.5 GM 4.5 GM/100 ML BAG IVPB ONE (04:16)
[2018-04-17 04:23] LABS: INR 1.19 (0.83-1.09); PROTHROMBIN TIME (PATIENT) 14.1 SEC (9.7-13.0)
[2018-04-17 04:26] LABS: ACTIVATED PTT 25.7 SECONDS (25.2-36.5)
[2018-04-17] MEDS ORDERED: KETOROLAC TROMETHAMINE 30 MG/1 ML VIAL ONE (04:48)
[2018-04-17] MEDS: SODIUM CHLORIDE 1,000 ML IV SCH ×2 (05:00→18:05)
[2018-04-17] MEDS ORDERED: KETOROLAC TROMETHAMINE 30 MG/1 ML VIAL IVPUSH ONE (05:24)
[2018-04-17 05:54] VITALS: BMI 23.3
[2018-04-17 06:56] LABS: VENOUS PH 7.35 (7.32-7.42)
[2018-04-17 07:17] LABS: BASO % 0.3 % (0-2.0); HEMATOCRIT 24.7 % (32.4-45.2); HEMOGLOBIN 8.5 GM/dL (10.7-15.3); LYMPH % 11.6 % (8-40); MCH 29.2 pg (25.7-33.7); MCHC 34.2 g/dl (32.0-36.0); MEAN CELL VOLUME 85.2 fl (80-96); MEAN PLT VOLUME 7.9 fl (7.5-11.1); NEUT % 80.1 % (42.8-82.8); PLATELET COUNT 252 K/MM3 (134-434); RDW 15.2 % (11.6-15.6); WHITE BLOOD COUNT 7.1 K/mm3 (4.0-10.0)
[2018-04-17 07:24] LABS: ALBUMIN 1.9 g/dl (3.4-5.0); ALK PHOS 88 U/L (45-117); ANION GAP 5 MMOL/L (8-16); BILIRUBIN,TOTAL 0.3 mg/dL (0.2-1); BLOOD UREA NITROGEN 21 mg/dL (7-18); CALCIUM 7.5 mg/dL (8.5-10.1); CHLORIDE 102 mmol/L (98-107); CO2 28 mmol/L (21-32); CREATININE 1.1 mg/dL (0.55-1.3); GLUCOSE,RANDOM 84 mg/dL (74-106); MAGNESIUM 1.8 mg/dL (1.8-2.4); SGOT/AST 15 U/L (15-37); SGPT/ALT 19 U/L (13-61); SODIUM 136 mmol/L (136-145); TOT PROT 5.8 g/dl (6.4-8.2)
--- NOTE | 2018-04-17 08:45 | PN ---
Progress Note (short form) - Note Progress Note: Patient is a 37yo female with PMHx of polysubstance abuse including IV heroin, opiod dependence previously on methadone, [place]qui Disease, Hepatitis C treated about 2 yrs ago as per patient. with hx of Bipolar disorder, depression presents with c/o fever/chills and chest pain with deep inhalation. Pt states she was admitted to [facility] about 5 days ago and diagnosed with endocarditis and received about 3-4 days of antibiotics before signing out AMA and coming to this ER. As per patient, came to ED for having right hip pain, had the same pain in the past but pain increased and limited her mobility. Her last IV heroin injection was a few days prior to admission to [facility]. In the ER she was noted to have fever of 102.2F, tachycardic. Patient denies having any fever or chills. Vital Signs Temperature 97.6 F 04/17/18 08:00 Pulse Rate 64 04/17/18 08:00 Respiratory Rate 16 04/17/18 08:00 Blood Pressure 99/64 04/17/18 08:00 O2 Sat by Pulse Oximetry (%) 95 04/17/18 08:00 GENERAL: lethargic , drowsy , AAOX3 , poor hygiene , HEAD:NC/AT ,ENT: Dry MM EYES: Pupils equal, round and reactive to light, extraocular movements intact, sclera anicteric, conjunctiva clear. NECK: supple without JVD, right IJ (TLC) LUNGS: Breath sounds equal, clear to auscultation bilaterally. No wheezes, and no crackles. No accessory muscle use. HEART: Regular rate and rhythm, normal S1 and S2, 2/6 holosystolic murmur LUSB, RUSB , ABDOMEN: Soft, nontender, not distended, normoactive bowel sounds, diffuse skin stria all over her body , no CVA tenderness EXTREMITIES: well-perfused. No calf tenderness. No peripheral edema. right hip tenderness NEUROLOGICAL: Cranial nerves II-XII intact.slurred speech , drowsy PSYCHIATRIC: lethargic , drowsy SKIN: Warm, dry, poor hygiene, diffuse skin stria CBCD WBC 7.1 K/mm3 (4.0-10.0) 04/17/18 05:30 RBC 2.90 M/mm3 (3.60-5.2) L 04/17/18 05:30 Hgb 8.5 GM/dL (10.7-15.3) L 04/17/18 05:30 Hct 24.7 % (32.4-45.2) L 04/17/18 05:30 MCV 85.2 fl (80-96) 04/17/18 05:30 MCHC 34.2 g/dl (32.0-36.0) 04/17/18 05:30 RDW 15.2 % (11.6-15.6) 04/17/18 05:30 Plt Count 252 K/MM3 (134-434) 04/17/18 05:30 MPV 7.9 fl (7.5-11.1) 04/17/18 05:30 CMP Sodium 136 mmol/L (136-145) 04/17/18 05:30 Potassium 4.0 mmol/L (3.5-5.1) 04/17/18 05:30 Chloride 102 mmol/L (98-107) 04/17/18 05:30 Carbon Dioxide 28 mmol/L (21-32) 04/17/18 05:30 Anion Gap 5 MMOL/L (8-16) L 04/17/18 05:30 BUN 21 mg/dL (7-18) H 04/17/18 05:30 Creatinine 1.1 mg/dL (0.55-1.3) 04/17/18 05:30 Creat Clearance w eGFR 55.59 (>60) 04/17/18 05:30 Random Glucose 84 mg/dL (74-106) 04/17/18 05:30 Calcium 7.5 mg/dL (8.5-10.1) L 04/17/18 05:30 Total Bilirubin 0.3 mg/dL (0.2-1) 04/17/18 05:30 AST 15 U/L (15-37) 04/17/18 05:30 ALT 19 U/L (13-61) 04/17/18 05:30 Alkaline Phosphatase 88 U/L (45-117) 04/17/18 05:30 Total Protein 5.8 g/dl (6.4-8.2) L 04/17/18 05:30 Albumin 1.9 g/dl (3.4-5.0) L 04/17/18 05:30 CARDIAC ENZYMES Creatine Kinase 24 U/L (26-192) L 04/16/18 21:55 Troponin I < 0.02 ng/ml (0.00-0.05) 04/17/18 05:30 Current Medications Generic Name Dose Route Start Last Admin Trade Name Freq PRN Reason Stop Dose Admin Acetaminophen 650 mg 04/17/18 01:19 04/17/18 02:19 Tylenol - PO 650 mg Q4H PRN Administration FEVER Enoxaparin Sodium 40 mg 04/17/18 10:00 Lovenox - SQ DAILY ROSAURA Piperacillin Sod/Tazobactam 50 mls @ 100 mls/hr 04/18/18 10:00 Sod 3.375 gm/ Dextrose IVPB Q8H-IV ROSAURA Protocol Piperacillin Sod/Tazobactam 50 mls @ 100 mls/hr 04/17/18 09:00 Sod 3.375 gm/ Dextrose IVPB 04/18/18 02:29 Q8H-IV ROSAURA Protocol Sodium Chloride 1,000 mls @ 100 mls/hr 04/17/18 01:45 04/17/18 05:00 Normal Saline - IV 100 mls/hr ASDIR ROSAURA Administration Polyethylene Glycol 17 gm 04/17/18 10:00 Miralax (For Daily Use) - PO DAILY ROSAURA Home Medications Medication Instructions Recorded Diphenhydramine [Benadryl] 25 mg IV QID 04/16/18 Ibuprofen [Motrin -] 600 mg PO QID 04/16/18 Methadone (Detox) [Dolophine -] 20 mg PO DAILY 04/16/18 Microbiology 04/16/18 23:10 Blood - Peripheral Venous Blood Culture - Preliminary Pending Organism 04/16/18 23:00 Blood - Peripheral Venous Blood Culture - Preliminary Pending Organism 04/16/18 21:39 Blood - Peripheral Venous Blood Culture - Preliminary Pending Organism Assessment/Plan: Patient is a 37 year old female with pmhx of substance abuse (heroin ) and h/o endocarditis presented to ED today due to having chest pain and right hip pain was found to be septic and was admitted to [facility] for further evaluation. # Sepsis likely due to endocarditis , on IV vanco and Rocephin as per id # Acute chest pain most likely due to having endocarditis, unliky to ACS #ACute Hip pain over chronic R/O osteomylitis , will get MRI # Substance abuse: will get detox consult # Anemia likely due to chronic disease #Hx of jaqui # Proph : lovenox 40 daily sq echo mri of the right hip. Visit type - Emergency Visit Emergency Visit: Yes ED Registration Date: 04/16/18 Care time: The patient presented to the Emergency Department on the above date and was hospitalized for further evaluation of their emergent condition. - New Patient This patient is new to me today: Yes Date on this admission: 04/17/18 - Critical Care Critical Care patient: No - Discharge Referral Referred to [facility] Med P.C.: No
[2018-04-17] MEDS ORDERED: PIPERACILLIN/TAZOB 3.375 GM 3.375 GM in DEXTROSE 5%-WATER - 50 ML IVPB SCH ×2 (09:00→10:45)
[2018-04-17] MEDS ORDERED: VANCOMYCIN 1 GRAM (PRE-DOCKED) 1,000 MG/250 ML BAG IVPB ONE ×2 (09:15→12:00)
--- NOTE | 2018-04-17 11:47 | CON.ID ---
Consult - History of Present Illness History of Present Illness: 37 y.o. female with PMH of polysubstance abuse including IV heroin, opiod dependence previously on methadone, Diaz Disease, Hepatitis C treated about 2 yrs ago as per pt, Bipolar d.o./depression presents with c/o fever/chills and chest pain with deep inhalation. Pt states she was admitted to [facility] about 5 days ago and diagnosed with endocarditis and received about 3- 4 days of antibiotics before signing out AMA and coming to this ER. Pt does not know the name of antibiotic she was getting. Pt also c/o of Rt groin pain that began a few days prior to hospitalization. She has had pain in Rt hip in the past but pain increased and limited her mobility. Her last IV heroin injection was a few days prior to admission to [facility]. In the ER she was noted to have fever of 102.2F, tachcardia. Currently she is alert and afebrile. - History Source History Provided By: Patient Limitations to Obtaining History: No Limitations - Past Medical History Psych: Yes: Bipolar, Depression Musculoskeletal: Yes: Other (Rt hip pain) Endocrine: Yes: Diaz's Disease - Past Surgical History Past Surgical History: Yes: None - Alcohol/Substance Use Hx Alcohol Use: No History of Substance Use: reports: Heroin, Marijuana - Smoking History Smoking history: Current every day smoker Have you smoked in the past 12 months: Yes Aproximately how many cigarettes per day: 5 - Social History Usual Living Arrangement: With Significant Other Home Medications - Allergies Allergies/Adverse Reactions: Allergies Allergy/AdvReac Type Severity Reaction Status Date / Time No Known Allergies Allergy Verified 04/16/18 20:23 - Home Medications Home Medications: Ambulatory Orders Diphenhydramine [Benadryl] 25 mg IV QID 04/16/18 Ibuprofen [Motrin -] 600 mg PO QID 04/16/18 Methadone (Detox) [Dolophine -] 20 mg PO DAILY 04/16/18 Family Disease History - Family Disease History Family Disease History: Diabetes: Grandparent (paternal GM - DM; mGM - CHF), Father (borderline DM, CHF - ), Heart Disease: Grandparent, Father, Mother (htn), CA: Sister (lupus, ca), Other: Sister, Daughter Review of Systems - Review of Systems Constitutional: reports: Chills, Fever Eyes: reports: No Symptoms HENT: reports: No Symptoms Neck: reports: No Symptoms Cardiovascular: reports: Chest Pain (with inhalation) Respiratory: reports: No Symptoms Gastrointestinal: reports: No Symptoms Genitourinary: reports: No Symptoms Musculoskeletal: reports: Other (Rt groin pain) Integumentary: reports: No Symptoms Neurological: reports: No Symptoms Endocrine: reports: No Symptoms Physical Exam Vital Signs: Vital Signs Temperature 97.6 F 04/17/18 08:00 Pulse Rate 64 04/17/18 08:00 Respiratory Rate 16 04/17/18 08:00 Blood Pressure 99/64 04/17/18 08:00 O2 Sat by Pulse Oximetry (%) 95 04/17/18 08:00 Constitutional: Yes: No Distress, Calm Eyes: Yes: Conjunctiva Clear HENT: Yes: Atraumatic Neck: Yes: Supple Cardiovascular: Yes: Regular Rate and Rhythm Respiratory: Yes: Wheezes Gastrointestinal: Yes: Normal Bowel Sounds, Soft Renal/: Yes: WNL Musculoskeletal: Yes: Other (Rt groin pain, limits ROM) Neurological: Yes: Alert, Oriented Labs: CBC, BMP 04/17/18 05:30 04/17/18 05:30 Laboratory Tests 04/16/18 04/16/18 04/16/18 20:55 20:55 20:55 WBC 8.6 RBC 3.35 L Hgb 9.7 L Hct 28.6 L D MCV 85.6 MCH 29.0 MCHC 33.9 RDW 15.3 Plt Count 306 MPV 8.2 Absolute Neuts (auto) 7.3 Neutrophils % 85.2 H D Lymphocytes % 7.8 L D Monocytes % 6.4 Eosinophils % 0.4 D Basophils % 0.2 Nucleated RBC % 0 ESR PT with INR INR PTT (Actin FS) VBG pH POC VBG pCO2 POC VBG pO2 Mixed VBG HCO3 Sodium 133 L Potassium 4.8 Chloride 99 Carbon Dioxide 28 Anion Gap 6 L BUN 21 H Creatinine 1.2 Creat Clearance w eGFR 50.28 Random Glucose 83 Hemoglobin A1c % Lactic Acid Calcium 8.4 L Phosphorus Magnesium Total Bilirubin 0.2 AST 15 ALT 19 Alkaline Phosphatase 111 Creatine Kinase Troponin I C-Reactive Protein Total Protein 7.1 Albumin 2.4 L Beta HCG, Quant Urine Color Urine Appearance Urine pH Ur Specific [place] Urine Protein Urine Glucose (UA) Urine Ketones Urine Blood Urine Nitrite Urine Bilirubin Urine Urobilinogen Ur Leukocyte Esterase Urine WBC (Auto) Urine RBC (Auto) Ur Epithelial Cells Urine HCG, Qual Negative Opiates Screen Methadone Screen Barbiturate Screen Phencyclidine Screen Ur Amphetamines Screen MDMA (Ecstasy) Screen Benzodiazepines Screen Cocaine Screen U Marijuana (THC) Screen 04/16/18 04/17/18 04/17/18 21:55 02:36 02:36 WBC RBC Hgb Hct MCV MCH MCHC RDW Plt Count MPV Absolute Neuts (auto) Neutrophils % Lymphocytes % Monocytes % Eosinophils % Basophils % Nucleated RBC % ESR PT with INR INR PTT (Actin FS) VBG pH POC VBG pCO2 POC VBG pO2 Mixed VBG HCO3 Sodium Potassium Chloride Carbon Dioxide Anion Gap BUN Creatinine Creat Clearance w eGFR Random Glucose Hemoglobin A1c % Lactic Acid Calcium Phosphorus Magnesium Total Bilirubin AST ALT Alkaline Phosphatase Creatine Kinase 24 L Troponin I < 0.02 C-Reactive Protein Total Protein Albumin Beta HCG, Quant Urine Color Yellow Urine Appearance Slcloudy Urine pH 5.0 Ur Specific [place] 1.016 Urine Protein Negative Urine Glucose (UA) Negative Urine Ketones Negative Urine Blood Negative Urine Nitrite Negative Urine Bilirubin Negative Urine Urobilinogen Negative Ur Leukocyte Esterase 1+ H Urine WBC (Auto) 6 Urine RBC (Auto) 3 Ur Epithelial Cells Few Urine HCG, Qual Opiates Screen Positive A* Methadone Screen Positive A* Barbiturate Screen Negative Phencyclidine Screen Negative Ur Amphetamines Screen Negative MDMA (Ecstasy) Screen Negative Benzodiazepines Screen Negative Cocaine Screen Positive A* U Marijuana (THC) Screen Positive A* 04/17/18 04/17/18 04/17/18 03:54 03:54 03:59 WBC RBC Hgb Hct MCV MCH MCHC RDW Plt Count MPV Absolute Neuts (auto) Neutrophils % Lymphocytes % Monocytes % Eosinophils % Basophils % Nucleated RBC % ESR 1 PT with INR INR PTT (Actin FS) VBG pH Cancelled POC VBG pCO2 Cancelled POC VBG pO2 Cancelled Mixed VBG HCO3 Cancelled Sodium Potassium Chloride Carbon Dioxide Anion Gap BUN Creatinine Creat Clearance w eGFR Random Glucose Hemoglobin A1c % Lactic Acid Calcium Phosphorus Magnesium Total Bilirubin AST ALT Alkaline Phosphatase Creatine Kinase Troponin I Cancelled C-Reactive Protein Total Protein Albumin Beta HCG, Quant Urine Color Urine Appearance Urine pH Ur Specific [place] Urine Protein Urine Glucose (UA) Urine Ketones Urine Blood Urine Nitrite Urine Bilirubin Urine Urobilinogen Ur Leukocyte Esterase Urine WBC (Auto) Urine RBC (Auto) Ur Epithelial Cells Urine HCG, Qual Opiates Screen Methadone Screen Barbiturate Screen Phencyclidine Screen Ur Amphetamines Screen MDMA (Ecstasy) Screen Benzodiazepines Screen Cocaine Screen U Marijuana (THC) Screen 04/17/18 04/17/18 04/17/18 03:59 03:59 03:59 WBC RBC Hgb Hct MCV MCH MCHC RDW Plt Count MPV Absolute Neuts (auto) Neutrophils % Lymphocytes % Monocytes % Eosinophils % Basophils % Nucleated RBC % ESR PT with INR 14.10 H INR 1.19 H PTT (Actin FS) 25.7 VBG pH POC VBG pCO2 POC VBG pO2 Mixed VBG HCO3 Sodium Potassium Chloride Carbon Dioxide Anion Gap BUN Creatinine Creat Clearance w eGFR Random Glucose Hemoglobin A1c % Lactic Acid Calcium Phosphorus Magnesium Total Bilirubin AST ALT Alkaline Phosphatase Creatine Kinase Troponin I < 0.02 C-Reactive Protein Total Protein Albumin Beta HCG, Quant < 1.0 Urine Color Urine Appearance Urine pH Ur Specific [place] Urine Protein Urine Glucose (UA) Urine Ketones Urine Blood Urine Nitrite Urine Bilirubin Urine Urobilinogen Ur Leukocyte Esterase Urine WBC (Auto) Urine RBC (Auto) Ur Epithelial Cells Urine HCG, Qual Opiates Screen Methadone Screen Barbiturate Screen Phencyclidine Screen Ur Amphetamines Screen MDMA (Ecstasy) Screen Benzodiazepines Screen Cocaine Screen U Marijuana (THC) Screen 04/17/18 04/17/18 04/17/18 03:59 04:37 05:30 WBC RBC Hgb Hct MCV MCH MCHC RDW Plt Count MPV Absolute Neuts (auto) Neutrophils % Lymphocytes % Monocytes % Eosinophils % Basophils % Nucleated RBC % ESR PT with INR INR PTT (Actin FS) VBG pH 7.35 POC VBG pCO2 47.0 POC VBG pO2 144.0 H Mixed VBG HCO3 25.0 Sodium 136 Potassium 4.0 Chloride 102 Carbon Dioxide 28 Anion Gap 5 L BUN 21 H Creatinine 1.1 Creat Clearance w eGFR 55.59 Random Glucose 84 Hemoglobin A1c % Lactic Acid 1.2 Calcium 7.5 L Phosphorus 4.0 Magnesium 1.8 Total Bilirubin 0.3 AST 15 ALT 19 Alkaline Phosphatase 88 Creatine Kinase Troponin I C-Reactive Protein 11.2 H Total Protein 5.8 L Albumin 1.9 L Beta HCG, Quant Urine Color Urine Appearance Urine pH Ur Specific [place] Urine Protein Urine Glucose (UA) Urine Ketones Urine Blood Urine Nitrite Urine Bilirubin Urine Urobilinogen Ur Leukocyte Esterase Urine WBC (Auto) Urine RBC (Auto) Ur Epithelial Cells Urine HCG, Qual Opiates Screen Methadone Screen Barbiturate Screen Phencyclidine Screen Ur Amphetamines Screen MDMA (Ecstasy) Screen Benzodiazepines Screen Cocaine Screen U Marijuana (THC) Screen 04/17/18 04/17/18 04/17/18 05:30 05:30 05:30 WBC 7.1 RBC 2.90 L Hgb 8.5 L Hct 24.7 L MCV 85.2 MCH 29.2 MCHC 34.2 RDW 15.2 Plt Count 252 MPV 7.9 Absolute Neuts (auto) 5.7 Neutrophils % 80.1 Lymphocytes % 11.6 D Monocytes % 7.0 Eosinophils % 1.0 D Basophils % 0.3 Nucleated RBC % 0 ESR PT with INR INR PTT (Actin FS) VBG pH POC VBG pCO2 POC VBG pO2 Mixed VBG HCO3 Sodium Potassium Chloride Carbon Dioxide Anion Gap BUN Creatinine Creat Clearance w eGFR Random Glucose Hemoglobin A1c % 5.6 Lactic Acid Calcium Phosphorus Magnesium Total Bilirubin AST ALT Alkaline Phosphatase Creatine Kinase Troponin I < 0.02 C-Reactive Protein Total Protein Albumin Beta HCG, Quant Urine Color Urine Appearance Urine pH Ur Specific [place] Urine Protein Urine Glucose (UA) Urine Ketones Urine Blood Urine Nitrite Urine Bilirubin Urine Urobilinogen Ur Leukocyte Esterase Urine WBC (Auto) Urine RBC (Auto) Ur Epithelial Cells Urine HCG, Qual Opiates Screen Methadone Screen Barbiturate Screen Phencyclidine Screen Ur Amphetamines Screen MDMA (Ecstasy) Screen Benzodiazepines Screen Cocaine Screen U Marijuana (THC) Screen Blood cultures pending Imaging - Results Chest X-ray: Report Reviewed (no infiltrates) X-ray: Report Reviewed (hip: no fracture/lytic lesions) Problem List - Problems (1) Endocarditis Code(s): I38 - ENDOCARDITIS, VALVE UNSPECIFIED Qualifiers: Endocarditis type: unspecified Chronicity: unspecified Qualified Code(s) : I38 - Endocarditis, valve unspecified (2) Sepsis Code(s): A41.9 - SEPSIS, UNSPECIFIED ORGANISM Qualifiers: Sepsis type: sepsis due to unspecified organism Qualified Code(s): A41.9 - Sepsis, unspecified organism (3) Opiate dependence Code(s): F11.20 - OPIOID DEPENDENCE, UNCOMPLICATED (4) H/O: depression Code(s): Z86.59 - PERSONAL HISTORY OF OTHER MENTAL AND BEHAVIORAL DISORDERS (5) Hepatitis C antibody positive in blood Code(s): R76.8 - OTHER SPECIFIED ABNORMAL IMMUNOLOGICAL FINDINGS IN SERUM (6) Tobacco abuse disorder Code(s): Z72.0 - TOBACCO USE (7) H/O Diaz disease Code(s): Z86.39 - PERSONAL HISTORY OF ENDO, NUTRITIONAL AND METABOLIC DISEASE Assessment/Plan Fever Endocarditis - dx during recent hospitalization as patient IVDU/polysubstance abuse Hx of Cushings -- suggest Ceftriaxone and Vancomycin IV for now -- f/u blood cultures and repeat -- suggest Echocardiogram, consider MRI for Rt groin/hip pain -- monitor temperature trend, vitals Will follow Thank you
[2018-04-17] MEDS ORDERED: PIPERACILLIN/TAZOBACTAM 3.375 GM VIAL IVPB ONE (11:49)
[2018-04-17] MEDS ORDERED: DEXTROSE 5%-WATER - 50 ML IVPB ONE (11:49)
[2018-04-17] MEDS: ENOXAPARIN NA (PORCINE) 40 MG/0.4 ML DISP.SYRIN SQ SCH (11:51)
[2018-04-17] MEDS: POLYETHYLENE GLYCOL 3350 119 GM BTL PO SCH (12:09)
[2018-04-17] MEDS ORDERED: DEXTROSE 5%-WATER 100 ML IVPB ONE (13:55)
[2018-04-17] MEDS: CEFTRIAXONE 2 GM in DEXTROSE 5%-WATER 100 ML IVPB SCH (13:58)
[2018-04-17] MEDS ORDERED: LOPERAMIDE HCL 2 MG CAPSULE PO PRN (21:12)
[2018-04-17] MEDS ORDERED: KETOROLAC TROMETHAMINE 30 MG/1 ML VIAL IM ONE (21:12)
[2018-04-17] MEDS ORDERED: LORazepam 2 MG/ML SDV VIAL IVPUSH ONE (21:12)
[2018-04-17] MEDS ORDERED: PROMETHAZINE HCL 25 MG TABLET PO PRN (21:13)
[2018-04-17] MEDS ORDERED: PT OWN MED DRAWER 7, Y5N ONE (21:27)
[2018-04-17] MEDS: NICOTINE 21 MG/24 HOURS TOPICAL PATCH TD SCH (23:27)
[2018-04-17] MEDS: VANCOMYCIN 1 GRAM (PRE-DOCKED) 1,000 MG/250 ML BAG IVPB SCH (23:27)
[2018-04-18] MEDS: SODIUM CHLORIDE 1,000 ML IV SCH (02:02)
[2018-04-18 06:45] VITALS: TEMP 99.8
[2018-04-18] MEDS ORDERED: KETOROLAC TROMETHAMINE 30 MG/1 ML VIAL IVPUSH ONE (09:27)
[2018-04-18] MEDS ORDERED: METHADONE HCL 10 MG TABLET (FOR DETOX USE ONLY) PO ONE (10:00)
[2018-04-18] MEDS ORDERED: PIPERACILLIN/TAZOB 3.375 GM 3.375 GM in DEXTROSE 5%-WATER - 50 ML IVPB SCH (10:00)
[2018-04-18] MEDS ORDERED: METHADONE HCL 10 MG TABLET PO ONE (10:15)
[2018-04-18] MEDS ORDERED: DEXTROSE 5%-WATER 100 ML IVPB ONE (10:28)
[2018-04-18] MEDS: POLYETHYLENE GLYCOL 3350 119 GM BTL PO SCH (10:35)
[2018-04-18] MEDS: NICOTINE 21 MG/24 HOURS TOPICAL PATCH TD SCH (10:35)
[2018-04-18] MEDS: ENOXAPARIN NA (PORCINE) 40 MG/0.4 ML DISP.SYRIN SQ SCH (10:35)
[2018-04-18] MEDS: CEFTRIAXONE 2 GM in DEXTROSE 5%-WATER 100 ML IVPB SCH (10:36)
--- NOTE | 2018-04-18 12:52 | PN ---
Progress Note, Physician History of Present Illness: Pt states she feels better. Tmax 100.7. Denies SOB, CP. No other specific complaints. - Current Medication List Current Medications: Active Medications Acetaminophen (Tylenol -) 650 mg PO Q4H PRN PRN Reason: FEVER Last Admin: 04/17/18 13:10 Dose: 650 mg Enoxaparin Sodium (Lovenox -) 40 mg SQ DAILY ROSAURA Last Admin: 04/18/18 10:35 Dose: 40 mg Sodium Chloride (Normal Saline -) 1,000 mls @ 100 mls/hr IV ASDIR ROSAURA Last Admin: 04/18/18 02:02 Dose: 100 mls/hr Ceftriaxone Sodium 2 gm/ (Dextrose) 100 mls @ 200 mls/hr IVPB DAILY ROSAURA; Protocol Last Admin: 04/18/18 10:36 Dose: 200 mls/hr Vancomycin HCl (Vancomycin (Pre-Docked)) 1,000 mg in 250 mls @ 166.667 mls/hr IVPB Q12H ROSAURA; Protocol Last Admin: 04/17/18 23:27 Dose: 166.667 mls/hr Loperamide HCl (Imodium -) 4 mg PO Q6H PRN PRN Reason: DIARRHEA Lorazepam (Ativan Injection -) 1 mg IVPUSH Q6H PRN PRN Reason: ANXIETY Nicotine (Nicoderm Patch -) 21 mg TD DAILY [facility] Last Admin: 04/18/18 10:35 Dose: 21 mg Polyethylene Glycol (Miralax (For Daily Use) -) 17 gm PO DAILY [facility] Last Admin: 04/18/18 10:35 Dose: 17 grams Promethazine HCl (Phenergan -) 25 mg PO Q6H PRN PRN Reason: NAUSEA AND/OR VOMITING - Objective Vital Signs: Vital Signs Temperature 99.8 F H 04/18/18 06:00 Pulse Rate 83 04/18/18 06:00 Respiratory Rate 16 04/18/18 06:00 Blood Pressure 120/74 04/18/18 06:00 O2 Sat by Pulse Oximetry (%) 95 04/17/18 21:00 Constitutional: Yes: No Distress, Calm Cardiovascular: Yes: Regular Rate and Rhythm Respiratory: Yes: Regular Gastrointestinal: Yes: Normal Bowel Sounds, Soft Genitourinary: Yes: WNL Edema: No Neurological: Yes: Alert, Oriented Labs: CBC, BMP 04/17/18 05:30 04/17/18 05:30 INR, PTT INR 1.19 (0.83-1.09) H 04/17/18 03:59 Microbiology 04/16/18 23:00 Blood - Peripheral Venous Blood Culture - Preliminary Presumptive Mrsa (Pbp2a Pos) 04/17/18 02:36 Urine - Urine Clean Catch Urine Culture - Final 04/16/18 21:39 Blood - Peripheral Venous Blood Culture - Preliminary Staphylococcus Latex Coag Pos 04/16/18 23:10 Blood - Peripheral Venous Blood Culture - Preliminary Staphylococcus Latex Coag Pos Problem List - Problems (1) Endocarditis Code(s): I38 - ENDOCARDITIS, VALVE UNSPECIFIED Qualifiers: Endocarditis type: unspecified Chronicity: unspecified Qualified Code(s) : I38 - Endocarditis, valve unspecified (2) Sepsis Code(s): A41.9 - SEPSIS, UNSPECIFIED ORGANISM Qualifiers: Sepsis type: sepsis due to unspecified organism Qualified Code(s): A41.9 - Sepsis, unspecified organism (3) Opiate dependence Code(s): F11.20 - OPIOID DEPENDENCE, UNCOMPLICATED (4) H/O: depression Code(s): Z86.59 - PERSONAL HISTORY OF OTHER MENTAL AND BEHAVIORAL DISORDERS (5) Hepatitis C antibody positive in blood Code(s): R76.8 - OTHER SPECIFIED ABNORMAL IMMUNOLOGICAL FINDINGS IN SERUM (6) Tobacco abuse disorder Code(s): Z72.0 - TOBACCO USE Assessment/Plan Fever Endocarditis - dx during recent hospitalization IVDU/polysubstance abuse Hx of Cushings Blood Culture results noted: presumptive MRSA x 3 sets -- Continue current antibiotics until blood culture results final, repeat blood cultures -- Echocardiogram -- check HIV Ab/pcr, Hepatitis panel, HCV PCR continue monitor temps
[2018-04-18] MEDS: VANCOMYCIN 1 GRAM (PRE-DOCKED) 1,000 MG/250 ML BAG IVPB SCH (13:00)
--- NOTE | 2018-04-18 20:06 | PN ---
Physical Exam: SUBJECTIVE: Patient seen and examined at bedside. No acute events overnight. OBJECTIVE: Vital Signs Period Temp Pulse Resp BP Sys/Han Pulse Ox Last 24 Hr 99.5 F-99.8 F 80-96 16-34 98-120/70-81 95-95 GENERAL: NAD, poor hygiene. HEAD: Atraumatic/Normocephalic EYES: EOMI Sclera Clear NECK: supple without JVD LUNGS: CTAB Good inspiratory effort HEART: 2/6 holosystolic murmur LUSB, RUSB. nl [id number] ABDOMEN: Nontender nondistended EXTREMITIES: No CCE NEUROLOGICAL: Cranial nerves II-XII intact SKIN: diffuse skin stria Active Medications Generic Name Dose Route Start Last Admin Trade Name Freq PRN Reason Stop Dose Admin Acetaminophen 650 mg 04/17/18 01:19 04/17/18 13:10 Tylenol - PO 650 mg Q4H PRN Administration FEVER Enoxaparin Sodium 40 mg 04/17/18 10:00 04/18/18 10:35 Lovenox - SQ 40 mg DAILY ROSAURA Administration Sodium Chloride 1,000 mls @ 100 mls/hr 04/17/18 01:45 04/18/18 02:02 Normal Saline - IV 100 mls/hr ASDIR ROSAURA Administration Ceftriaxone Sodium 2 gm/ 100 mls @ 200 mls/hr 04/17/18 12:15 04/18/18 10:36 Dextrose IVPB 200 mls/hr DAILY ROSAURA Administration Protocol Vancomycin HCl 1,000 mg in 250 mls @ 166.667 mls/hr 04/18/18 00:00 04/18/18 13:00 Vancomycin (Pre-Docked) IVPB 166.667 mls/hr Q12H ROSAURA Administration Protocol Loperamide HCl 4 mg 04/17/18 21:12 Imodium - PO Q6H PRN DIARRHEA Lorazepam 1 mg 04/18/18 09:14 Ativan Injection - IVPUSH Q6H PRN ANXIETY Nicotine 21 mg 04/17/18 23:15 04/18/18 10:35 Nicoderm Patch - TD 21 mg DAILY ROSAURA Administration Polyethylene Glycol 17 gm 04/17/18 10:00 04/18/18 10:35 Miralax (For Daily Use) - PO 17 grams DAILY ROSAURA Administration Promethazine HCl 25 mg 04/17/18 21:13 Phenergan - PO Q6H PRN NAUSEA AND/OR VOMITING ASSESSMENT/PLAN: Patient is a 37 year old female with pmhx of substance abuse (heroin ), [place]' s disease, and endocarditis presented to ED due to having chest pain and right hip pain was found to be septic and was admitted to tele for further evaluation. # Gram positive bacteremia: most likely MRSA; on Vancomycin IV, continue current regimen, ID on the case. # Sepsis likely 2/2 endocarditis - IV vanco and Rocephin as per ID # Acute chest pain most likely due to having endocarditis, unlikely to ACS -Echo pending #Acute Hip pain over chronic R/O osteomylitis , will get MRI of the right hip. # Substance abuse: UDS + for Cocaine, Marijuana, Opiates, Methadone Methadone x 1 dose, Ativan 1gm IV q6hr prn # Anemia likely due to chronic disease # DVT PPx : Lovenox 40 QD #FEN NS@100cc/hr Monitor Electrolytes Regular Diet Dispo: Tele Visit type - Emergency Visit Emergency Visit: Yes ED Registration Date: 04/16/18 Care time: The patient presented to the Emergency Department on the above date and was hospitalized for further evaluation of their emergent condition. - New Patient This patient is new to me today: Yes Date on this admission: 04/18/18 - Critical Care Critical Care patient: No - Discharge Referral Referred to [facility] Med P.C.: No
--- NOTE | 2018-04-18 20:10 | PN ---
Teaching Attending Note Name of Resident: Jeffrey Velasco ATTENDING PHYSICIAN STATEMENT I saw and evaluated the patient. I reviewed the resident's note and discussed the case with the resident. I agree with the resident's findings and plan as documented. SUBJECTIVE: Patient is feeling better with no acute distress. No nausea or vomiting. OBJECTIVE: Vital Signs Temperature 99.8 F H 04/18/18 06:00 Pulse Rate 80 04/18/18 15:00 Respiratory Rate 17 04/18/18 15:00 Blood Pressure 119/81 04/18/18 15:00 O2 Sat by Pulse Oximetry (%) 95 04/18/18 09:00 GENERAL: lethargic , drowsy , AAOX3 , poor hygiene , HEAD:NC/AT ,ENT: Dry MM EYES: Pupils equal, round and reactive to light, extraocular movements intact, sclera anicteric, conjunctiva clear. NECK: supple without JVD, right IJ (TLC) LUNGS: Breath sounds equal, CTA BL , No wheezes, and no crackles. No accessory muscle use. HEART: RRR, normal S1 and S2, 2/6 holosystolic murmur LUSB, RUSB , ABDOMEN: Soft, nontender, not distended, normoactive bowel sounds, diffuse skin stria all over her body. EXTREMITIES: well-perfused. No calf tenderness. No peripheral edema. right hip tenderness NEUROLOGICAL: Cranial nerves II-XII intact.slurred speech , drowsy PSYCHIATRIC: lethargic , drowsy SKIN: Warm, dry, poor hygiene, diffuse skin stria CBCD WBC 7.1 K/mm3 (4.0-10.0) 04/17/18 05:30 RBC 2.90 M/mm3 (3.60-5.2) L 04/17/18 05:30 Hgb 8.5 GM/dL (10.7-15.3) L 04/17/18 05:30 Hct 24.7 % (32.4-45.2) L 04/17/18 05:30 MCV 85.2 fl (80-96) 04/17/18 05:30 MCHC 34.2 g/dl (32.0-36.0) 04/17/18 05:30 RDW 15.2 % (11.6-15.6) 04/17/18 05:30 Plt Count 252 K/MM3 (134-434) 04/17/18 05:30 MPV 7.9 fl (7.5-11.1) 04/17/18 05:30 CMP Sodium 136 mmol/L (136-145) 04/17/18 05:30 Potassium 4.0 mmol/L (3.5-5.1) 04/17/18 05:30 Chloride 102 mmol/L (98-107) 04/17/18 05:30 Carbon Dioxide 28 mmol/L (21-32) 04/17/18 05:30 Anion Gap 5 MMOL/L (8-16) L 04/17/18 05:30 BUN 21 mg/dL (7-18) H 04/17/18 05:30 Creatinine 1.1 mg/dL (0.55-1.3) 04/17/18 05:30 Creat Clearance w eGFR 55.59 (>60) 04/17/18 05:30 Random Glucose 84 mg/dL (74-106) 04/17/18 05:30 Calcium 7.5 mg/dL (8.5-10.1) L 04/17/18 05:30 Total Bilirubin 0.3 mg/dL (0.2-1) 04/17/18 05:30 AST 15 U/L (15-37) 04/17/18 05:30 ALT 19 U/L (13-61) 04/17/18 05:30 Alkaline Phosphatase 88 U/L (45-117) 04/17/18 05:30 Total Protein 5.8 g/dl (6.4-8.2) L 04/17/18 05:30 Albumin 1.9 g/dl (3.4-5.0) L 04/17/18 05:30 CARDIAC ENZYMES Creatine Kinase 24 U/L (26-192) L 04/16/18 21:55 Troponin I < 0.02 ng/ml (0.00-0.05) 04/17/18 05:30 Current Medications Generic Name Dose Route Start Last Admin Trade Name Freq PRN Reason Stop Dose Admin Acetaminophen 650 mg 04/17/18 01:19 04/17/18 13:10 Tylenol - PO 650 mg Q4H PRN Administration FEVER Enoxaparin Sodium 40 mg 04/17/18 10:00 04/18/18 10:35 Lovenox - SQ 40 mg DAILY ROSAURA Administration Sodium Chloride 1,000 mls @ 100 mls/hr 04/17/18 01:45 04/18/18 02:02 Normal Saline - IV 100 mls/hr ASDIR ROSAURA Administration Ceftriaxone Sodium 2 gm/ 100 mls @ 200 mls/hr 04/17/18 12:15 04/18/18 10:36 Dextrose IVPB 200 mls/hr DAILY [facility]A Administration Protocol Vancomycin HCl 1,000 mg in 250 mls @ 166.667 mls/hr 04/18/18 00:00 04/18/18 13:00 Vancomycin (Pre-Docked) IVPB 166.667 mls/hr Q12H ROSAURA Administration Protocol Loperamide HCl 4 mg 04/17/18 21:12 Imodium - PO Q6H PRN DIARRHEA Lorazepam 1 mg 04/18/18 09:14 Ativan Injection - IVPUSH Q6H PRN ANXIETY Nicotine 21 mg 04/17/18 23:15 04/18/18 10:35 Nicoderm Patch - TD 21 mg DAILY ROSAURA Administration Polyethylene Glycol 17 gm 04/17/18 10:00 04/18/18 10:35 Miralax (For Daily Use) - PO 17 grams DAILY ROSAURA Administration Promethazine HCl 25 mg 04/17/18 21:13 Phenergan - PO Q6H PRN NAUSEA AND/OR VOMITING Home Medications Medication Instructions Recorded Diphenhydramine [Benadryl] 25 mg IV QID 04/16/18 Ibuprofen [Motrin -] 600 mg PO QID 04/16/18 Methadone (Detox) [Dolophine -] 20 mg PO DAILY 04/16/18 Microbiology 04/16/18 23:00 Blood - Peripheral Venous Blood Culture - Preliminary Presumptive Mrsa (Pbp2a Pos) 04/17/18 02:36 Urine - Urine Clean Catch Urine Culture - Final 04/16/18 21:39 Blood - Peripheral Venous Blood Culture - Preliminary Staphylococcus Latex Coag Pos 04/16/18 23:10 Blood - Peripheral Venous Blood Culture - Preliminary Staphylococcus Latex Coag Pos ASSESSMENT AND PLAN: Patient is a 37 year old female with pmhx of substance abuse (heroin ) and PMHx endocarditis presented to ED today due to having chest pain and right hip pain was found to be septic and was admitted to [facility] for further evaluation. # Gram positive bacteremia: most likely MRSA; on Vancomycin IV, continue current regimen, ID on the case. # Sepsis likely due to endocarditis , on IV vanco and Rocephin as per id # Acute chest pain most likely due to having endocarditis, unlikely to ACS #Acute Hip pain over chronic R/O osteomylitis , will get MRI of the right hip. # Substance abuse: Detox MD was contacted, ordered Methadone x 1 dose, Ativan 1gm IV q6hr prn, # Anemia likely due to chronic disease #Hx of jaqui # Proph : lovenox 40 daily sq echo mri of the right hip.
[2018-04-18] MEDS: LORazepam 2 MG/ML SDV VIAL IVPUSH PRN (21:00)
[2018-04-19] MEDS: VANCOMYCIN 1 GRAM (PRE-DOCKED) 1,000 MG/250 ML BAG IVPB SCH ×2 (00:35→14:07)
[2018-04-19] MEDS: SODIUM CHLORIDE 1,000 ML IV SCH ×2 (00:37→09:48)
[2018-04-19] MEDS: LORazepam 2 MG/ML SDV VIAL IVPUSH PRN ×2 (06:23→12:34)
[2018-04-19] MEDS: ACETAMINOPHEN 325 MG TABLET (FP) PO PRN (06:24)
[2018-04-19 06:51] LABS: BASO % 0.7 % (0-2.0); EOS % 2.8 % (0-4.5); HEMATOCRIT 25.4 % (32.4-45.2); HEMOGLOBIN 8.6 GM/dL (10.7-15.3); LYMPH % 17.8 % (8-40); MCH 28.7 pg (25.7-33.7); MCHC 33.6 g/dl (32.0-36.0); MEAN CELL VOLUME 85.2 fl (80-96); MEAN PLT VOLUME 7.8 fl (7.5-11.1); MONO % 9.4 % (3.8-10.2); NEUT % 69.3 % (42.8-82.8); PLATELET COUNT 306 K/MM3 (134-434); RBC 2.99 M/mm3 (3.60-5.2); WHITE BLOOD COUNT 5.9 K/mm3 (4.0-10.0)
[2018-04-19 06:58] LABS: ALBUMIN 1.8 g/dl (3.4-5.0); ALK PHOS 89 U/L (45-117); ANION GAP 5 MMOL/L (8-16); BILIRUBIN,TOTAL 0.2 mg/dL (0.2-1); BLOOD UREA NITROGEN 19 mg/dL (7-18); CALCIUM 8.3 mg/dL (8.5-10.1); CHLORIDE 101 mmol/L (98-107); CO2 31 mmol/L (21-32); GLUCOSE,RANDOM 92 mg/dL (74-106); MAGNESIUM 2.3 mg/dL (1.8-2.4); PHOSPHOROUS 3.4 mg/dL (2.5-4.9); POTASSIUM 4.6 mmol/L (3.5-5.1); SGOT/AST 13 U/L (15-37); SGPT/ALT 18 U/L (13-61); SODIUM 137 mmol/L (136-145)
[2018-04-19 07:32] VITALS: BP 120/82; PULSE 66
--- NOTE | 2018-04-19 09:36 | PN ---
Physical Exam: SUBJECTIVE: Patient seen and examined OBJECTIVE: Vital Signs Period Temp Pulse Resp BP Sys/Han Pulse Ox Last 24 Hr 66-80 17-18 107-123/71-82 95 GENERAL: Alert and oreinted x3, poor hygiene. HEAD: Atraumatic/Normocephalic EYES: EOMI Sclera Clear NECK: supple without JVD LUNGS: CTAB Good inspiratory effort HEART: 2/6 holosystolic murmur LUSB, RUSB. nl s1s2 ABDOMEN: Nontender nondistended EXTREMITIES: No CCE NEUROLOGICAL: Cranial nerves II-XII intact SKIN: diffuse skin stria Laboratory Results - last 24 hr 04/19/18 04/19/18 05:30 05:30 WBC 5.9 RBC 2.99 L Hgb 8.6 L Hct 25.4 L MCV 85.2 MCH 28.7 MCHC 33.6 RDW 15.0 Plt Count 306 D MPV 7.8 Absolute Neuts (auto) 4.1 Neutrophils % 69.3 Lymphocytes % 17.8 D Monocytes % 9.4 Eosinophils % 2.8 D Basophils % 0.7 Nucleated RBC % 0 Sodium 137 Potassium 4.6 Chloride 101 Carbon Dioxide 31 Anion Gap 5 L BUN 19 H Creatinine 1.0 Creat Clearance w eGFR > 60 Random Glucose 92 Calcium 8.3 L Phosphorus 3.4 Magnesium 2.3 Total Bilirubin 0.2 AST 13 L ALT 18 Alkaline Phosphatase 89 Total Protein 6.0 L Albumin 1.8 L Active Medications Generic Name Dose Route Start Last Admin Trade Name Freq PRN Reason Stop Dose Admin Acetaminophen 650 mg 04/17/18 01:19 04/19/18 06:24 Tylenol - PO 650 mg Q4H PRN Administration FEVER Enoxaparin Sodium 40 mg 04/17/18 10:00 04/18/18 10:35 Lovenox - SQ 40 mg DAILY ROSAURA Administration Sodium Chloride 1,000 mls @ 100 mls/hr 04/17/18 01:45 04/19/18 00:37 Normal Saline - IV 100 mls/hr ASDIR ROSAURA Administration Ceftriaxone Sodium 2 gm/ 100 mls @ 200 mls/hr 04/17/18 12:15 04/18/18 10:36 Dextrose IVPB 200 mls/hr DAILY ROSAURA Administration Protocol Vancomycin HCl 1,000 mg in 250 mls @ 166.667 mls/hr 04/18/18 00:00 04/19/18 00:35 Vancomycin (Pre-Docked) IVPB 166.667 mls/hr Q12H ROSAURA Administration Protocol Loperamide HCl 4 mg 04/17/18 21:12 Imodium - PO Q6H PRN DIARRHEA Lorazepam 1 mg 04/18/18 09:14 04/19/18 06:23 Ativan Injection - IVPUSH 1 mg Q6H PRN Administration ANXIETY Nicotine 21 mg 04/17/18 23:15 04/18/18 10:35 Nicoderm Patch - TD 21 mg DAILY ROSAURA Administration Polyethylene Glycol 17 gm 04/17/18 10:00 04/18/18 10:35 Miralax (For Daily Use) - PO 17 grams DAILY ROSAURA Administration Promethazine HCl 25 mg 04/17/18 21:13 Phenergan - PO Q6H PRN NAUSEA AND/OR VOMITING ASSESSMENT/PLAN:
[2018-04-19] MEDS ORDERED: DEXTROSE 5%-WATER 100 ML IVPB ONE (09:47)
[2018-04-19] MEDS: ENOXAPARIN NA (PORCINE) 40 MG/0.4 ML DISP.SYRIN SQ SCH (09:48)
[2018-04-19] MEDS: CEFTRIAXONE 2 GM in DEXTROSE 5%-WATER 100 ML IVPB SCH (09:48)
[2018-04-19] MEDS ORDERED: NICOTINE POLACRILEX 2 MG GUM BUC PRN (10:20)
[2018-04-19] MEDS ORDERED: hydrOXYzine PAMOATE 25 MG CAPSULE (FP) PO PRN (10:22)
[2018-04-19] MEDS ORDERED: IBUPROFEN 600 MG TABLET (FP) PO PRN (10:23)
--- NOTE | 2018-04-19 10:24 | PN ---
[facility] Progress Note (SOAP) Subjective: 37 y.o. female patient referred for opiate dependence / use, reports first age of use [age] in [place], started w/ opioid pills unknown name , some interval sobriety , then heroin use x reportedly 2-3 months before entering Methadone program at [facility] , MDD 140 mg , admin taper per pt for reportedly spitting in a cup after dosing , reports relapse , current use 2- 3 bags IVDU in amor UE , denies OD , abscess x 1 " a long time ago " . Cocaine use - sporadically per pt . denies other illicits or etoh . Hospitalized for endocarditis, per pt went to [facility] for chest pain / SOB , and hip pain , known djd per pt saw ortho 3 years ago , no surgical intervention . Current meds as below . Nursing staff reports pt was missing from the unit for about an hour yesterday . tobacco : 1 ppd PMHx : [place] disease, HTN, HCV, asthma LMP 1 week ago , irregular , has 1-yr old child in foster care , family court involvement . Active Medications Acetaminophen (Tylenol -) 650 mg PO Q4H PRN PRN Reason: FEVER Last Admin: 04/19/18 06:24 Dose: 650 mg Enoxaparin Sodium (Lovenox -) 40 mg SQ DAILY ROSAURA Last Admin: 04/19/18 09:48 Dose: 40 mg Sodium Chloride (Normal Saline -) 1,000 mls @ 100 mls/hr IV ASDIR ROSAURA Last Admin: 04/19/18 09:48 Dose: 100 mls/hr Ceftriaxone Sodium 2 gm/ (Dextrose) 100 mls @ 200 mls/hr IVPB DAILY ROSAURA; Protocol Last Admin: 04/19/18 09:48 Dose: 200 mls/hr Vancomycin HCl (Vancomycin (Pre-Docked)) 1,000 mg in 250 mls @ 166.667 mls/hr IVPB Q12H ROSAURA; Protocol Last Admin: 04/19/18 00:35 Dose: 166.667 mls/hr Loperamide HCl (Imodium -) 4 mg PO Q6H PRN PRN Reason: DIARRHEA Lorazepam (Ativan Injection -) 1 mg IVPUSH Q6H PRN PRN Reason: ANXIETY Last Admin: 04/19/18 06:23 Dose: 1 mg Nicotine (Nicoderm Patch -) 21 mg TD DAILY ROSAURA Last Admin: 04/18/18 10:35 Dose: 21 mg Polyethylene Glycol (Miralax (For Daily Use) -) 17 gm PO DAILY [facility] Last Admin: 04/18/18 10:35 Dose: 17 grams Promethazine HCl (Phenergan -) 25 mg PO Q6H PRN PRN Reason: NAUSEA AND/OR VOMITING Objective: CBC, BMP 04/19/18 05:30 04/19/18 05:30 Vital Signs - 24 hr 04/18/18 04/18/18 04/18/18 15:00 19:00 21:00 Pulse Rate 80 74 Respiratory 17 17 17 Rate Blood Pressure 119/81 123/73 O2 Sat by Pulse 95 Oximetry (%) 04/18/18 04/19/18 23:00 07:00 Pulse Rate 66 Respiratory 18 Rate Blood Pressure 107/71 120/82 O2 Sat by Pulse Oximetry (%) wnwd , agitated, anxious , tearful , reports diarrhea, poor appetite , chills/ sweating, irritability . Assessment: opioid dependence cocaine use nicotine dependence chronic pain right hip Plan: Methadone detox , vistaril prn Ibuprofen prn for moderate to severe pain . when medically cleared , pt reports intention to go to outpatient program [facility] and participate in an OTP w/ Methadone .
[2018-04-19] MEDS: NICOTINE 21 MG/24 HOURS TOPICAL PATCH TD SCH (10:27)
[2018-04-19] MEDS ORDERED: METHADONE HCL 10 MG TABLET PO ONE (11:00)
[2018-04-19] MEDS: POLYETHYLENE GLYCOL 3350 119 GM BTL PO SCH (14:40)
--- NOTE | 2018-04-19 14:48 | PN ---
Progress Note, Physician History of Present Illness: patient who was admitted for drug abuse and now who has blood cx positive for mrsa patient does not want to stay in the hospital she has been explained the dangers of the blood being positive and also the danger to her life patient still wants to sign out ama she says she knows everything - Current Medication List Current Medications: Active Medications Acetaminophen (Tylenol -) 650 mg PO Q4H PRN PRN Reason: FEVER Last Admin: 04/19/18 06:24 Dose: 650 mg Enoxaparin Sodium (Lovenox -) 40 mg SQ DAILY ROSAURA Last Admin: 04/19/18 09:48 Dose: 40 mg Hydroxyzine Pamoate (Vistaril -) 25 mg PO Q4H PRN PRN Reason: FOR ITCHING Last Admin: 04/19/18 12:29 Dose: 25 mg Sodium Chloride (Normal Saline -) 1,000 mls @ 100 mls/hr IV ASDIR ROSAURA Last Admin: 04/19/18 09:48 Dose: 100 mls/hr Ceftriaxone Sodium 2 gm/ (Dextrose) 100 mls @ 200 mls/hr IVPB DAILY ROSAURA; Protocol Last Admin: 04/19/18 09:48 Dose: 200 mls/hr Vancomycin HCl (Vancomycin (Pre-Docked)) 1,000 mg in 250 mls @ 166.667 mls/hr IVPB Q12H ROSAURA; Protocol Last Admin: 04/19/18 14:07 Dose: 166.667 mls/hr Ibuprofen (Motrin -) 600 mg PO Q8H PRN PRN Reason: PAIN LEVEL 6-10 Last Admin: 04/19/18 10:55 Dose: 600 mg Loperamide HCl (Imodium -) 4 mg PO Q6H PRN PRN Reason: DIARRHEA Lorazepam (Ativan Injection -) 1 mg IVPUSH Q6H PRN PRN Reason: ANXIETY Last Admin: 04/19/18 12:34 Dose: 1 mg Methadone HCl (Dolophine -) 5 mg PO ONCE@0600 ONE Stop: 04/22/18 06:01 Methadone HCl (Dolophine -) 15 mg PO ONCE ONE Stop: 04/20/18 10:01 Methadone HCl (Dolophine -) 10 mg PO ONCE ONE Stop: 04/21/18 10:01 Nicotine (Nicoderm Patch -) 21 mg TD DAILY [facility] Last Admin: 04/19/18 10:27 Dose: 21 mg Nicotine Polacrilex (Nicorette Gum -) 2 mg BUC Q2H PRN PRN Reason: NICOTINE REPLACEMENT RX Last Admin: 04/19/18 12:24 Dose: 2 mg Polyethylene Glycol (Miralax (For Daily Use) -) 17 gm PO DAILY [facility] Last Admin: 04/19/18 14:40 Dose: Not Given Promethazine HCl (Phenergan -) 25 mg PO Q6H PRN PRN Reason: NAUSEA AND/OR VOMITING - Objective Vital Signs: Vital Signs Temperature 99.8 F H 04/18/18 06:00 Pulse Rate 66 04/19/18 07:00 Respiratory Rate 18 04/18/18 23:00 Blood Pressure 120/82 04/19/18 07:00 O2 Sat by Pulse Oximetry (%) 95 04/18/18 21:00 Labs: CBC, BMP 04/19/18 05:30 04/19/18 05:30 INR, PTT INR 1.19 (0.83-1.09) H 04/17/18 03:59
--- NOTE | 2018-04-19 15:04 | PN ---
Teaching Attending Note Name of Resident: Jeffrey Velasco ATTENDING PHYSICIAN STATEMENT I saw and evaluated the patient. I reviewed the resident's note and discussed the case with the resident. I agree with the resident's findings and plan as documented. SUBJECTIVE: Patient has no fever or chills. In Tele bed. OBJECTIVE: Vital Signs Temperature 99.8 F H 04/18/18 06:00 Pulse Rate 66 04/19/18 07:00 Respiratory Rate 18 04/18/18 23:00 Blood Pressure 120/82 04/19/18 07:00 O2 Sat by Pulse Oximetry (%) 95 04/18/18 21:00 GENERAL: lethargic , drowsy , AAOX3 , poor hygiene , HEAD:NC/AT ,ENT: Dry MM EYES: Pupils equal, round and reactive to light, extraocular movements intact, sclera anicteric, conjunctiva clear. NECK: supple without JVD, right IJ (TLC) LUNGS: Breath sounds equal, CTA BL , No wheezes, and no crackles. No accessory muscle use. HEART: RRR, normal S1 and S2, 3/6 holosystolic murmur LUSB, RUSB , ABDOMEN: Soft, nontender, not distended, normoactive bowel sounds, diffuse skin stria all over her body. EXTREMITIES: well-perfused. No calf tenderness. No peripheral edema. right hip tenderness NEUROLOGICAL: Cranial nerves II-XII intact.slurred speech , drowsy PSYCHIATRIC: lethargic , drowsy SKIN: Warm, dry, poor hygiene, diffuse skin stria CBCD WBC 5.9 K/mm3 (4.0-10.0) 04/19/18 05:30 RBC 2.99 M/mm3 (3.60-5.2) L 04/19/18 05:30 Hgb 8.6 GM/dL (10.7-15.3) L 04/19/18 05:30 Hct 25.4 % (32.4-45.2) L 04/19/18 05:30 MCV 85.2 fl (80-96) 04/19/18 05:30 MCHC 33.6 g/dl (32.0-36.0) 04/19/18 05:30 RDW 15.0 % (11.6-15.6) 04/19/18 05:30 Plt Count 306 K/MM3 (134-434) D 04/19/18 05:30 MPV 7.8 fl (7.5-11.1) 04/19/18 05:30 CMP Sodium 137 mmol/L (136-145) 04/19/18 05:30 Potassium 4.6 mmol/L (3.5-5.1) 04/19/18 05:30 Chloride 101 mmol/L (98-107) 04/19/18 05:30 Carbon Dioxide 31 mmol/L (21-32) 04/19/18 05:30 Anion Gap 5 MMOL/L (8-16) L 04/19/18 05:30 BUN 19 mg/dL (7-18) H 04/19/18 05:30 Creatinine 1.0 mg/dL (0.55-1.3) 04/19/18 05:30 Creat Clearance w eGFR > 60 (>60) 04/19/18 05:30 Random Glucose 92 mg/dL (74-106) 04/19/18 05:30 Calcium 8.3 mg/dL (8.5-10.1) L 04/19/18 05:30 Total Bilirubin 0.2 mg/dL (0.2-1) 04/19/18 05:30 AST 13 U/L (15-37) L 04/19/18 05:30 ALT 18 U/L (13-61) 04/19/18 05:30 Alkaline Phosphatase 89 U/L (45-117) 04/19/18 05:30 Total Protein 6.0 g/dl (6.4-8.2) L 04/19/18 05:30 Albumin 1.8 g/dl (3.4-5.0) L 04/19/18 05:30 CARDIAC ENZYMES Creatine Kinase 24 U/L (26-192) L 04/16/18 21:55 Troponin I < 0.02 ng/ml (0.00-0.05) 04/17/18 05:30 Current Medications Generic Name Dose Route Start Last Admin Trade Name Freq PRN Reason Stop Dose Admin Acetaminophen 650 mg 04/17/18 01:19 04/19/18 06:24 Tylenol - PO 650 mg Q4H PRN Administration FEVER Enoxaparin Sodium 40 mg 04/17/18 10:00 04/19/18 09:48 Lovenox - SQ 40 mg DAILY ROSAURA Administration Hydroxyzine Pamoate 25 mg 04/19/18 10:22 04/19/18 12:29 Vistaril - PO 25 mg Q4H PRN Administration FOR ITCHING Sodium Chloride 1,000 mls @ 100 mls/hr 04/17/18 01:45 04/19/18 09:48 Normal Saline - IV 100 mls/hr ASDIR ROSAURA Administration Ceftriaxone Sodium 2 gm/ 100 mls @ 200 mls/hr 04/17/18 12:15 04/19/18 09:48 Dextrose IVPB 200 mls/hr DAILY ROSAURA Administration Protocol Vancomycin HCl 1,000 mg in 250 mls @ 166.667 mls/hr 04/18/18 00:00 04/19/18 14:07 Vancomycin (Pre-Docked) IVPB 166.667 mls/hr Q12H ROSAURA Administration Protocol Ibuprofen 600 mg 04/19/18 10:23 04/19/18 10:55 Motrin - PO 600 mg Q8H PRN Administration PAIN LEVEL 6-10 Loperamide HCl 4 mg 04/17/18 21:12 Imodium - PO Q6H PRN DIARRHEA Lorazepam 1 mg 04/18/18 09:14 04/19/18 12:34 Ativan Injection - IVPUSH 1 mg Q6H PRN Administration ANXIETY Methadone HCl 5 mg 04/22/18 06:00 Dolophine - PO 04/22/18 06:01 ONCE@0600 ONE Methadone HCl 15 mg 04/20/18 10:00 Dolophine - PO 04/20/18 10:01 ONCE ONE Methadone HCl 10 mg 04/21/18 10:00 Dolophine - PO 04/21/18 10:01 ONCE ONE Nicotine 21 mg 04/17/18 23:15 04/19/18 10:27 Nicoderm Patch - TD 21 mg DAILY ROSAURA Administration Nicotine Polacrilex 2 mg 04/19/18 10:20 04/19/18 12:24 Nicorette Gum - BUC 2 mg Q2H PRN Administration NICOTINE REPLACEMENT RX Polyethylene Glycol 17 gm 04/17/18 10:00 04/19/18 14:40 Miralax (For Daily Use) - PO Not Given DAILY ROSAURA Promethazine HCl 25 mg 04/17/18 21:13 Phenergan - PO Q6H PRN NAUSEA AND/OR VOMITING Home Medications Medication Instructions Recorded Diphenhydramine [Benadryl] 25 mg IV QID 04/16/18 Ibuprofen [Motrin -] 600 mg PO QID 04/16/18 Methadone (Detox) [Dolophine -] 20 mg PO DAILY 04/16/18 Microbiology 04/16/18 23:00 Blood - Peripheral Venous Blood Culture - Final S Aureus 04/16/18 21:39 Blood - Peripheral Venous Blood Culture - Final S Aureus 04/16/18 23:10 Blood - Peripheral Venous Blood Culture - Final S Aureus 04/17/18 02:36 Urine - Urine Clean Catch Urine Culture - Final ASSESSMENT AND PLAN: Patient is a 37 year old female with pmhx of substance abuse (heroin ) and PMHx endocarditis presented to ED today due to having chest pain and right hip pain was found to be septic and was admitted to [facility] for further evaluation. # MRSA bacteremia: on Vancomycin IV, continue current regimen, ID on the case. # Sepsis due to MRSA bacteremia and likely due to endocarditis , on IV vanco and Rocephin as per id to continue # Acute chest pain most likely due to having endocarditis, unlikely to ACS #Acute Hip pain over chronic R/O osteomylitis , will get MRI of the right hip once stable # Substance abuse: Detox MD was contacted, ordered Methadone, Ativan 1gm IV q6hr prn, # Anemia likely due to chronic disease #Hx of jaqui # Proph : lovenox 40 daily sq echo mri of the right hip.
--- NOTE | 2018-04-19 15:14 | ECHO ---
Name: CYNDY CAMPOS Exam:Adult Echocardiogram Study Date: 04/19/2018 10:16 AM Age: 37 yrs Reason For Study: R/O Endocarditis Height: 62 in Weight: 120 lb BSA: 1.5 m2 MMode/2D Measurements & Calculations IVSd: 0.82 cm Ao root diam: 2.9 cm LVIDd: 4.9 cm LA dimension: 3.1 cm LVIDs: 2.9 cm LVPWd: 0.98 cm EDV(Teich): 110.4 ml LVOT diam: 2.0 cm ESV(Teich): 31.8 ml LAV (MOD-bp): 71.4 ml Doppler Measurements & Calculations MV E max onur: 111.0 cm/sec Ao V2 max: 168.3 cm/sec MV A max onur: 61.1 cm/sec Ao max P.3 mmHg MV E/A: 1.8 MV dec time: 0.16 sec TANGELA(V,D): 1.8 cm2 LV V1 max P.8 mmHg TR max onur: 232.4 cm/sec LV V1 max: 97.5 cm/sec TR max P.2 mmHg PA V2 max: 127.6 cm/sec Med Peak E' Onur: 13.3 cm/sec PA max P.5 mmHg Med E/e': 8.4 Lat Peak E' Onur: 13.9 cm/sec Lat E/e': 8.0 Procedure A complete two-dimensional transthoracic echocardiogram was performed (2D, M-mode, Doppler and color flow Doppler). Left Ventricle The left ventricle is normal in size. Left ventricular systolic function is normal. Ejection Fraction = 65- 70%. No regional wall motion abnormalities noted. Right Ventricle The right ventricle is normal size. The right ventricular systolic function is normal. Atria The left atrial size is normal. Right atrial size is normal. Mitral Valve The mitral valve is normal in structure and function. There is mild mitral regurgitation. Tricuspid Valve The tricuspid valve is normal in structure and function. There is moderate tricuspid regurgitation. R ight ventricular systolic pressure is normal. Aortic Valve The aortic valve is normal in structure and function. No aortic regurgitation is present. Pulmonic Valve The pulmonic valve is not well visualized. Great Vessels The aortic root is normal size. Pericardium/Pleura There is no pericardial effusion. Interpretation Summary The left ventricle is normal in size. Left ventricular systolic function is normal. No regional wall motion abnormalities noted. Ejection Fraction = 65-70%. The right ventricular systolic function is normal. The left atrial size is normal. Right atrial size is normal. There is mild mitral regurgitation. There is moderate tricuspid regurgitation. Right ventricular systolic pressure is normal. There is no pericardial effusion. No obvious vegetations are seen. Clinical correlation is recommended Previous study is not available for comparison Don Feliciano MD 04/19/2018 03:13 PM
--- NOTE | 2018-04-19 18:36 | DS ---
Physical Exam: SUBJECTIVE: Patient seen and examined at bedside. No acute events overnight. OBJECTIVE: Vital Signs Period Temp Pulse Resp BP Sys/Han Pulse Ox Last 24 Hr 66-74 17-18 107-123/71-82 95 PHYSICAL EXAM GENERAL: AAOx3, poor hygiene. HEAD: Atraumatic/Normocephalic EYES: EOMI Sclera Clear NECK: supple without JVD LUNGS: CTAB Good inspiratory effort HEART: 2/6 holosystolic murmur LUSB, RUSB. nl s1s2 ABDOMEN: Nontender nondistended EXTREMITIES: No CCE NEUROLOGICAL: Cranial nerves II-XII intact SKIN: Diffuse skin stria LABS Laboratory Results - last 24 hr 04/19/18 04/19/18 05:30 05:30 WBC 5.9 RBC 2.99 L Hgb 8.6 L Hct 25.4 L MCV 85.2 MCH 28.7 MCHC 33.6 RDW 15.0 Plt Count 306 D MPV 7.8 Absolute Neuts (auto) 4.1 Neutrophils % 69.3 Lymphocytes % 17.8 D Monocytes % 9.4 Eosinophils % 2.8 D Basophils % 0.7 Nucleated RBC % 0 Sodium 137 Potassium 4.6 Chloride 101 Carbon Dioxide 31 Anion Gap 5 L BUN 19 H Creatinine 1.0 Creat Clearance w eGFR > 60 Random Glucose 92 Calcium 8.3 L Phosphorus 3.4 Magnesium 2.3 Total Bilirubin 0.2 AST 13 L ALT 18 Alkaline Phosphatase 89 Total Protein 6.0 L Albumin 1.8 L HOSPITAL COURSE: Date of Admission:04/16/18 Patient is a 37 year old female with pmhx of substance abuse (heroin), Diaz' s disease, and endocarditis who presented to the ED due to having chest pain and right hip pain was found to be septic and was admitted to [facility] for further evaluation. Trops were negative x3. Pt had blood cultures drawn in ED which came back + for MRSA. Pt was started on Vancomycin and Zosyn. Pt underwent an Echo as pt had endorsed that she was recently treated for Endocarditis at [facility]. Echo did not reveal any obvious vegetations; EF 65-70%. Furthermore, pt had been complaining of R Hip pain and an R hip xray was taken which did not reveal any acute R hip pathology. Pt was started on a methadone taper and was given Ativan PRN for withdraw symptoms. Pt ultimately signed out AMA before completion of taper an ABx treatment . Date of Discharge: 04/19/18 Minutes to complete discharge: 35 Discharge Summary Reason For Visit: ENDOCARDITIS/SEPSIS Condition: Stable - Instructions Referrals: Ana Manrique, [employer] [Primary Care Provider] - Disposition: AGAINST MEDICAL ADVICE - Home Medications Comprehensive Discharge Medication List: Ambulatory Orders Diphenhydramine [Benadryl] 25 mg IV QID 04/16/18 Ibuprofen [Motrin -] 600 mg PO QID 04/16/18 Methadone (Detox) [Dolophine -] 20 mg PO DAILY 04/16/18 This patient is new to me today: No Emergency Visit: Yes ED Registration Date: 04/16/18 Care time: The patient presented to the Emergency Department on the above date and was hospitalized for further evaluation of their emergent condition. Critical Care patient: No - Discharge Referral Referred to [facility] Med P.C.: No
[2018-04-20] MEDS ORDERED: METHADONE HCL 5 MG TABLET PO ONE (10:00)
--- NOTE | 2018-04-20 13:58 | EKG ---
Test Reason : Blood Pressure : / mmHG Vent. Rate : 088 BPM Atrial Rate : 088 BPM P-R Int : 138 ms QRS Dur : 082 ms QT Int : 326 ms P-R-T Axes : 048 056 053 degrees QTc Int : 394 ms NORMAL SINUS RHYTHM NORMAL ECG NO PREVIOUS ECGS AVAILABLE Confirmed by MD Stevie, Lv ([id number]) on 04/20/2018 1:57:54 PM Referred By: Confirmed By:Lv Hubbard MD
[2018-04-21] MEDS ORDERED: METHADONE HCL 10 MG TABLET PO ONE (10:00)
[2018-04-22] MEDS ORDERED: METHADONE HCL 5 MG TABLET PO ONE (06:00)
== END 2018-04-19 15:29 | disposition left against medical advice (07) | DRG 193 ==
LOC: JER 19:57 → JERBED 23:18 → J2W 04-17 06:02
PROVIDERS: ADMIT Internal Medicine; ATTEND Internal Medicine
PROC: HZ2ZZZZ Detoxification Services for Substance Abuse Treatment (ICD-10-PCS; principal; 2018-04-16)
DX: I33.0 Acute and subacute infective endocarditis (principal); I10 Essential (primary) hypertension; F11.23 Opioid dependence with withdrawal; E24.9 Cushing's syndrome, unspecified; J45.909 Unspecified asthma, uncomplicated; F17.210 Nicotine dependence, cigarettes, uncomplicated; M25.559 Pain in unspecified hip; D63.8 Anemia in other chronic diseases classified elsewhere; F32.9 Major depressive disorder, single episode, unspecified; R07.89 Other chest pain; A41.9 Sepsis, unspecified organism; E88.09 Other disorders of plasma-protein metabolism, not elsewhere classified; B19.20 Unspecified viral hepatitis C without hepatic coma; R50.9 Fever, unspecified; F12.10 Cannabis abuse, uncomplicated; B95.62 Methicillin resistant Staphylococcus aureus infection as the cause of diseases classified elsewhere; F14.10 Cocaine abuse, uncomplicated
CPT/HCPCS: 36415; 71045-TC-FY; 73502-TC-RT-FY; 80048; 80053; 80307; 81003; 81015; 82550; 82803; 83036; 83605; 83735; 84100; 84484; 84702; 84703; 85025; 85610; 85651; 85730; 86140; 87040; 87086; 87186; 93005; 93010; 93306-TC; 99285-25; J7030

== ENCOUNTER → 2018-10-12 | Outpatient (CLI) | payer OTHER | LOC: YHH 09:42 ==

== ENCOUNTER 2021-06-23 10:21 | Emergency (ER) | payer OTHER ==
[2021-06-23 10:30] VITALS: BMI 26.5
[2021-06-23] MEDS ORDERED: AMOXICILLIN 500 MG CAPSULE (FP) PO ONE (11:12)
[2021-06-23] MEDS ORDERED: ACETAMINOPHEN 325 MG TABLET (FP) PO ONE (11:12)
[2021-06-23] MEDS ORDERED: DEXAMETHASONE SOD PHOSPHATE 10 MG/1 ML VIAL PO ONE (11:13)
[2021-06-23] MEDS ORDERED: DEXAMETHASONE SOD PHOSPHATE 10 MG/1 ML VIAL ONE (12:05)
[2021-06-23] MEDS ORDERED: ACETAMINOPHEN 325 MG TABLET (FP) ONE (12:06)
[2021-06-23 12:35] LABS: BASO % 0.6 % (0-2.0); EOS % 1.8 % (0-4.5); HEMATOCRIT 38.2 % (32.4-45.2); HEMOGLOBIN 12.5 GM/dL (10.7-15.3); LYMPH % 18.1 % (8-40); MCH 28.5 pg (25.7-33.7); MCHC 32.7 g/dl (32.0-36.0); MEAN CELL VOLUME 87.1 fl (80-96); MONO % 7.7 % (3.8-10.2); NEUT % 71.8 % (42.8-82.8); PLATELET COUNT 214 10^3/uL (134-434); RBC 4.39 M/mm3 (3.60-5.2); RDW 13.8 % (11.6-15.6); WHITE BLOOD COUNT 4.8 K/mm3 (4.0-10.0)
[2021-06-23 13:03] LABS: ALBUMIN 3.3 g/dl (3.4-5.0); BLOOD UREA NITROGEN 10.7 mg/dL (7-18); CALCIUM 8.8 mg/dL (8.5-10.1)
[2021-06-23 13:06] LABS: CREATININE 0.8 mg/dL (0.55-1.3)
[2021-06-23 13:08] LABS: BILIRUBIN,TOTAL 0.4 mg/dL (0.2-1); TOT PROT 7.2 g/dl (6.4-8.2)
[2021-06-23 15:13] VITALS: BP 102/58; PULSE 45; TEMP 98.6
== END 2021-06-23 16:44 | disposition home or self-care (01) ==
LOC: JER 10:21
DX: R22.0 Localized swelling, mass and lump, head (principal)
CPT/HCPCS: 36415; 70487-TC; 80053; 84703; 85025; 99285-25; J1100; Q9967